=== PATIENT | female | born 1965 | race Caucasian/White ===

== ENCOUNTER 2024-08-11 00:51 | Inpatient (IN) | payer OTHER ==
[2024-08-11 01:33] LABS: Absolute Eosinophils 0.1 K/uL (0-0.5); Absolute Lymphocytes (CBC) 1.3 K/uL (0.7-4.9); Absolute Monocytes 0.4 K/uL (0.1-1.3); Absolute Neutrophil 4.9 K/uL (1.8-8.0); Basophils % 0.4 % (0-1.3); Eosinophils % 1.3 % (0-4.4); Hematocrit 38.7 % (36.0-45.0); Hemoglobin 12.6 g/dL (12.0-15.0); Lymphocytes % 19.2 % (15.3-44.8); MCH 29.4 pg (27.0-35.0); MCHC 32.6 g/dL (32.0-36.0); MCV 90.3 fL (80-100); MPV 7.8 fL (7.6-11.3); Monocytes % 6.7 % (3.3-12.3); Neutrophils % 72.4 % (41.7-73.7); Platelets 371 thou/uL (152-406); RBC Red Blood Cell Count 4.29 M/uL (3.86-4.86)
[2024-08-11 01:34] LABS: PT Prothrombin Time 9.8 SECONDS (9.4-12.5); Protime INR 0.87
[2024-08-11 02:13] LABS: ALT/SGPT 17 U/L (13-56); AST/SGOT 12 U/L (15-37); Albumin 2.9 g/dL (3.4-5.0); Albumin/Globulin Ratio 0.7 (1.1-1.8); Alkaline Phosphatase 161 U/L (45-117); Anion Gap 13.6 mEq/L (5.0-15.0); BUN Blood Urea Nitrogen 10 mg/dL (7-18); Bicarbonate 26 mEq/L (21-32); Bilirubin Direct < 0.2 mg/dL (0-0.2); Bilirubin Total 0.2 mg/dL (0.2-1.0); Globulin 4.1 g/dL (2.3-3.5); Glomerular Filtration Rate 71 ml/min (=/>90); Magnesium 1.9 mg/dL (1.6-2.4); NT PRO-BNP 280 pg/mL (<125); Potassium 4.6 mEq/L (3.5-5.1); Sodium Level 122 mEq/L (136-145); Troponin High Sensitivity 10.5 pg/mL (<58.9)
[2024-08-11 02:14] LABS: Glucose Level 946 mg/dL (74-106)
[2024-08-11] MEDS ORDERED: INSULIN REGULAR (HUMAN) 100 UNIT/ML ONE ×4 (02:29→16:24)
[2024-08-11] MEDS ORDERED: NA CHLORIDE 0.9% 3,000 ML ONE (02:30)
[2024-08-11] MEDS ORDERED: ONDANSETRON 4 MG/2 ML VIAL ONE (02:54)
--- NOTE | 2024-08-11 04:42 | RAD REPORT ---
EXAM: CT Head Without Intravenous Contrast CLINICAL HISTORY: The patient is 58 years old and is Female; Dizziness. TECHNIQUE: Axial computed tomography images of the head/brain without intravenous contrast. Sagit steven and coronal reformatted images were created and reviewed. This CT exam was performed using one or more of the following dose reduction techniques: automated exposure control, adjustment of t he mA and/or kV according to patient size, and/or use of iterative reconstruction technique. COMPARISON: No relevant prior studies available. FINDINGS: Brain: Unremarkable. No hemorrhage. No significant white matter disease. No edema. Ventricles: Unremarkable. No ventriculomegaly. Bones/joints: Unremarkable. No acute skull fracture. Soft tissues: Unremarkable. Sinuses: Unremarkable as visualized. No acute sinusitis. Mastoid air cells: No significant mastoid fluid. IMPRESSION: No acute intracranial findings. No hemorrhage. Electronically signed by: Yamilet Hare MD 08/11/2024 04:32 AM [facility] [place] Due to temporary technical issues with the PACS/[employer] reporting system, reports are being patric d by the in-house radiologist without review as a courtesy to ensure prompt reporting the interpreting radiologist is fully responsible for the content of the report. Transcribed Date/Time: 08/11/2024 4:40 AM
[2024-08-11 05:48] LABS: Specific Gravity > 1.030 (1.005-1.030); Sqamous Epithelial <5 /HPF (None Seen); Urine Bacteria None Seen /HPF (<20); Urine Bilirubin NEGATIVE (Negative); Urine Blood Negative (Negative); Urine Clarity Clear (Clear); Urine Color Colorless (Yellow); Urine Culture Reflex Order NOT NEEDED; Urine Glucose 4+ (Over) (Negative); Urine Ketones NEGATIVE (Negative); Urine Micro Reflex YN NO BILL MICROSCOPIC; Urine Nitrite NEGATIVE (Negative); Urine Protein TRACE (Negative); Urine RBC <5 /HPF (None Seen); Urine Urobilinogen Normal (Normal); Urine WBC <5 /HPF (<5)
--- NOTE | 2024-08-11 05:59 | RAD REPORT ---
EXAM: XR Chest, 1 View CLINICAL HISTORY: Chest pain. TECHNIQUE: Frontal view of the chest. COMPARISON: No relevant prior studies available. FINDINGS: Lungs: Unremarkable. No consolidation. Pleural space: Unremarkable. No pneumothorax. Heart: Unremarkable. No cardiomegaly. Mediastinum: Unremarkable. Normal mediastinal contour. Bones/joints: Unremarkable. No acute fracture. IMPRESSION: No acute disease. Electronically signed by: Carine Barbosa MD 08/11/2024 03:[address] [facility] Due to temporary technical issues with the PACS/[employer] reporting system, reports are being patric d by the in-house radiologist without review as a courtesy to ensure prompt reporting the interpreting radiologist is fully responsible for the content of the report. Transcribed Date/Time: 08/11/2024 5:59 AM
[2024-08-11 07:13] LABS: Anion Gap 9.7 mEq/L (5.0-15.0); Potassium 3.7 mEq/L (3.5-5.1)
--- NOTE | 2024-08-11 08:01 | RAD REPORT ---
EXAM: Chest Abdomen Pelvis W Cont CLINICAL INDICATION: Chest and abdominal pain TECHNIQUE: CT chest, abdomen and pelvis was performed, with 100 cc Isovue-300 IV contrast, as per de partment protocol. Axial, sagittal and coronal reconstructions were obtained. One or more of the following dose reduction techniques were used: Automated exposure control, adjustment of the mA and/o r kV according to the patient size, and/or iterative reconstruction. Unless otherwise specified, incidental findings do not require dedicated imaging follow-up. [id number]. Oral contrast not given. This limits evaluation of the bowel. COMPARISON: None FINDINGS: 4 cm right breast mass. In thickening. Skin ulceration. Lateral mid breast mass. Mild right axillary lymphadenopathy. Mild COPD No pleural effusion.. A trace pericardial effusion. The spinal or hilar lymphadenopathy. Liver, spleen, pancreas, left adrenal and kidneys unremarkable 1.9 cm right adrenal lesion Hounsfield unit 119 There is no evidence of diverticulitis Retroverted uterus. 4.2 cm mass abuts the posterior fundus. Gastric wall thickening IMPRESSION: Right breast mass may represent neoplasm or abscess. Gastric wall thickening could be secondary to inflammation or incomplete distention. 1.9 cm right adrenal lesion probably an adenoma. Follow-up washout CT recommended in one year. If sta ble greater than one-year no further follow-up would be recommended. 4.2 cm mass abutting the uterus could represent a subserosal fibroid or ovarian mass. Ultrasound caron mmended
--- NOTE | 2024-08-11 08:31 | ER ---
Nurse's Notes [facility] Name: Karlene Cr Age: 58 yrs Sex: Female : 1965 Arrival Date: 08/11/2024 Time: 00:51 Bed 7 Private MD: Diagnosis: Hyperglycemia, dehydration, breast mass Presentation: 08/11 01:06 Chief complaint: Patient states: 2300 i couldn't move my right arm for about 1 minute. lg3 Cp X3 days. wound to right breast. Coronavirus screen: Client denies travel out of the [place] in the last 14 days. At this time, the client does not indicate any symptoms associated with coronavirus-19. Ebola Screen: No symptoms or risks identified at this time. Initial Sepsis Screen: Does the patient meet any 2 criteria? No. Patient's initial sepsis screen is negative. Does the patient have a suspected source of infection? No. Patient's initial sepsis screen is negative. Risk Assessment: Do you want to hurt yourself or someone else? Patient reports no desire to harm self or others. Onset of symptoms was August 11, 2024. 01:06 Method Of Arrival: Wheelchair lg3 01:06 Acuity: [place] 3 lg3 Triage Assessment: 01:09 General: Appears in no apparent distress. comfortable, Behavior is calm, cooperative. lg3 Pain: Complains of pain in chest Pain does not radiate. Pain currently is 3 out of 10 on a pain scale. EENT: No deficits noted. No signs and/or symptoms were reported regarding the EENT system. Neuro: No deficits noted. Cornell Agitation-Sedation Scale (RASS): 0 - Alert and Calm Level of Consciousness is awake, alert, obeys commands, Oriented to person, place, time, situation. Cardiovascular: Reports chest pain, Capillary refill < 3 seconds Clubbing of nail beds is absent JVD is absent Patient's skin is warm and dry. Rhythm is regular. Respiratory: No deficits noted. Airway is patent Respiratory effort is even, unlabored, Respiratory pattern is regular, symmetrical. GI: No signs and/or symptoms were reported involving the gastrointestinal system. Abdomen is round non-distended. : No signs and/or symptoms were reported regarding the genitourinary system. Derm: Skin is intact, is healthy with good turgor, Skin is dry, Skin is normal, Skin temperature is warm Wound noted anterior aspect of right upper chest and right breast. Musculoskeletal: No signs and/or symptoms reported regarding the musculoskeletal system. Circulation, motion, and sensation intact. Range of motion: intact in all extremities. Historical: - Allergies: 01:09 PENICILLINS; lg3 - Home Meds: :09 gabapentin oral [Active]; unknown muscle relaxer [Active]; unknown insulin [Active]; lg3 - PMHx: :09 Diabetes mellitus; bipolar; neuropathy; lg3 - PSHx: 01: Cholecystectomy; lg3 - Immunization history:: Adult Immunizations up to date. - Infectious Disease History:: Denies. - Social history:: Smoking status: Patient reports the use of cigarette tobacco products, Patient denies any tobacco usage or history of. Patient/guardian denies using alcohol, street drugs. - Family history:: not pertinent. Screenin:13 [facility] ED Fall Risk Assessment (Adult) History of falling in the last 3 months, lg3 including since admission No falls in past 3 months (0 pts) Confusion or Disorientation No (0 pts) Intoxicated or Sedated No (0 pts) Impaired Gait Yes (1 pt) Mobility Assist Device Used Yes (1 pt) Altered Elimination Yes (1 pt) Score/Fall Risk Level 3 or more points = High Risk Oriented to surroundings, Maintained a safe environment, Educated pt \T\ family on fall prevention, incl call for assistance when getting out of bed, Assessed \T\ reinforced patient's understanding of fall precautions, Provided non-skid footwear. Abuse screen: Denies threats or abuse. Denies injuries from another. Nutritional screening: No deficits noted. Tuberculosis screening: No symptoms or risk factors identified. Assessment: :13 General: see triage assessment. Pain: Pain began 2-3 days ago. lg3 02:23 Reassessment: Patient appears in no apparent distress at this time. Patient and/or bm8 family updated on plan of care and expected duration. Pain level reassessed. Patient is alert, oriented x 3, equal unlabored respirations, skin warm/dry/pink. Reassessment: pt states that she should not have drank that code red [place] dew. General: Appears in no apparent distress. comfortable, Behavior is calm, cooperative, appropriate for age. Pain: Complains of pain in anterior aspect of left shoulder Pain currently is 7 out of 10 on a pain scale. Neuro: No deficits noted. Level of Consciousness is awake, alert, obeys commands, Oriented to person, place, time, situation, Appropriate for age. Neuro: Cardiovascular: Denies chest pain, Heart tones S1 S2 present Capillary refill < 3 seconds Patient's skin is warm and dry. Respiratory: Airway is patent Trachea midline Respiratory effort is even, unlabored, Respiratory pattern is regular, symmetrical, Breath sounds are clear bilaterally. GI: No signs and/or symptoms were reported involving the gastrointestinal system. : No signs and/or symptoms were reported regarding the genitourinary system. EENT: No signs and/or symptoms were reported regarding the EENT system. Derm: No signs and/or symptoms reported regarding the dermatologic system. Musculoskeletal: No signs and/or symptoms reported regarding the musculoskeletal system. 04:57 Reassessment: Patient appears in no apparent distress at this time. Patient and/or bm8 family updated on plan of care and expected duration. Pain level reassessed. Patient is alert, oriented x 3, equal unlabored respirations, skin warm/dry/pink. Patient states feeling better. Patient states symptoms have improved. Pain: Pain currently is 4 out of 10 on a pain scale. 06:46 Reassessment: Patient appears in no apparent distress at this time. Patient and/or bm8 family updated on plan of care and expected duration. Pain level reassessed. Patient is alert, oriented x 3, equal unlabored respirations, skin warm/dry/pink. pt is resting in bed watching tv, denies pain. awaiting new cmp results for furthre treatment if needed Patient denies pain at this time. Patient states feeling better. Patient states symptoms have improved. 10:59 Pain: Pain does not radiate. Quality of pain is described as aching. ko1 Vital Signs: 01:06 BP 105 / 80; Pulse 84; Resp 17 S; Temp 97.8(O); Pulse Ox 97% on R/A; Weight 58.97 kg lg3 (R); Height 5 ft. 7 in. (R); 02:23 BP 150 / 91; Pulse 86; Resp 18; Temp 97.7; Pulse Ox 97% ; Pain 7/10; bm8 04:57 BP 173 / 100; Pulse 88; Resp 18; Temp 97.7; Pulse Ox 100% ; Pain 4/10; bm8 06:46 BP 162 / 78; Pulse 87; Resp 18; Temp 97.7; Pulse Ox 99% ; Pain 0/10; bm8 01:06 Body Mass Index 20.36 (58.97 kg, 170.18 cm) lg3 02:23 Pain Scale: Adult bm8 04:57 Pain Scale: Adult bm8 06:46 Pain Scale: Adult bm8 Lupe Coma Score: 02:23 Eye Response: spontaneous(4). Motor Response: obeys commands(6). Verbal Response: bm8 oriented(5). Total: 15. 04:57 Eye Response: spontaneous(4). Motor Response: obeys commands(6). Verbal Response: bm8 oriented(5). Total: 15. 06:46 Eye Response: spontaneous(4). Motor Response: obeys commands(6). Verbal Response: bm8 oriented(5). Total: 15. 07:52 Eye Response: spontaneous(4). Motor Response: obeys commands(6). Verbal Response: sp4 oriented(5). Total: 15. ED Course: 00:52 Patient arrived in ED. mr 00:57 Alberto Stauffer MD is Attending Physician. sp4 01:09 Triage completed. lg3 01:09 Arm band placed on right wrist. lg3 01:12 EKG done, by ED staff, reviewed by Alberto Stauffer MD. Patient maintains SpO2 lg3 saturation greater than 95% on room air. 01:13 Patient has correct armband on for positive identification. Family accompanied patient. lg3 01:13 Inserted saline lock: 20 gauge in right forearm, using aseptic technique. Blood lg3 collected. Flushed with 10 mL NS. 01:14 Initial lab(s) drawn, by ED staff, sent to lab. lg3 01:14 Basic Metabolic Panel Sent. lg3 01:14 CBC with Diff Sent. lg3 01:14 LFT's Sent. lg3 01:15 Magnesium Sent. lg3 01:15 NT PRO-BNP Sent. lg3 01:15 PT-INR Sent. lg3 01:15 Troponin HS Sent. lg3 01:39 XRAY Chest (1 view) In Process Unspecified. EDMS 02:23 Lee Dubose, RN is Primary Nurse. bm8 02:23 Client placed on continuous cardiac and pulse oximetry monitoring. NIBP monitoring bm8 applied. Pulse ox on. NIBP on. Notified ED physician of a critical lab result(s). Glucose level 964. Door closed. Noise minimized. Warm blanket given. Pillow given. Verbal reassurance given. Head of bed elevated. 02:23 No provider procedures requiring assistance completed. bm8 03:05 CT Head Brain wo Cont In Process Unspecified. EDMS 07:33 Attending Physician role handed off by Alberto Stauffer MD ap3 07:33 Dorian Raphael MD is Attending Physician. ap3 07:36 CT Chest, Abdomen, Pelvis - W/Contrast In Process Unspecified. EDMS 07:52 Attending Physician role handed off by Dorian Raphael MD sp4 07:52 Alberto Stauffer MD is Attending Physician. sp4 08:10 Attending Physician role handed off by Alberto Stauffer MD sp3 08:10 Dorian Raphael MD is Attending Physician. sp3 08:30 Abram Nguyen is Hospitalizing Provider. sp3 10:59 Provided Education on: meds. ko1 10:59 Patient admitted, IV remains in place. ko1 Administered Medications: 02:46 Drug: NS 0.9% IV 1000 ml IV at 1000 ml once; to be given as a bolus over 60 minutes bm8 Route: IV; Rate: 1000 ml; Site: right forearm; 04:56 Follow up: Response: No adverse reaction; IV Status: Completed infusion; IV Intake: bm8 1000ml 02:47 Drug: Insulin Regular Human IVP 10 units IVP once {Co-Signature: jackie (Janett Sweeney bm8 RN).} Route: IVP; Site: right forearm; 04:56 Follow up: Response: No adverse reaction bm8 02:47 Drug: NS 0.9% IV 1000 ml IV at 1 bolus Per protocol; to be given as a bolus over 60 bm8 minutes Route: IV; Rate: 1 bolus; Site: right forearm; 04:56 Follow up: Response: No adverse reaction; IV Status: Completed infusion; IV Intake: bm8 1000ml 02:53 Drug: Ondansetron IVP 4 mg IVP once; over 2 minutes Route: IVP; Site: right forearm; bm8 04:55 Follow up: Response: No adverse reaction bm8 04:55 Drug: NS 0.9% IV 1000 ml IV at 125 ml/hr continuous Route: IV; Rate: 125 ml/hr; Site: bm8 right forearm; 11:55 Follow up: IV Status: Infusion continued upon admission ko1 Medication: 02:23 VIS not applicable for this client. bm8 Intake: 04:56 IV: 1000ml; Total: 1000ml. bm8 04:56 IV: 1000ml; Total: 2000ml. bm8 Outcome: 08:31 Decision to Hospitalize by Provider. sp3 10:59 Admitted to ER Hold. Please see [facility] for further documentation. ko1 10:59 Condition: stable 10:59 Instructed on the need for admit, 16:46 Admitted to Med/surg accompanied by tech, room 225, with chart, ko1 16:46 Patient left the ED. ko1 Signatures: Dispatcher [employer] EDPA Tana Thomas, Reg Reg mr Francisca Oseguera, RN RN ap3 Peggy Sanchez RN RN lg3 Dorian Raphael MD MD sp3 Brii Macdonald RN RN ko1 Alberto Stauffer MD MD sp4 Lee Dubose RN RN bm8 Janett Sweeney RN
--- NOTE | 2024-08-11 08:31 | EDPHYS ---
Physician Documentation [facility] Name: Karlene Cr Age: 58 yrs Sex: Female : 1965 Arrival Date: 08/11/2024 Time: 00:51 Bed 7 Private MD: ED Physician Dorian Raphael HPI: 08/11 00:57 This 58 yrs old Female presents to ER via Unassigned with complaints of Chest sp4 Pain, Dizziness, Arm Problem. 07:52 58-year-old female with history of uncontrolled diabetes presents with generalized sp4 dizziness chest pain and right arm pain . Historical: - Allergies: 01:09 PENICILLINS; lg3 - Home Meds: 01:09 gabapentin oral [Active]; unknown muscle relaxer [Active]; unknown insulin [Active]; lg3 - PMHx: 01:09 Diabetes mellitus; bipolar; neuropathy; lg3 - PSHx: 01:09 Cholecystectomy; lg3 - Immunization history:: Adult Immunizations up to date. - Infectious Disease History:: Denies. - Social history:: Smoking status: Patient reports the use of cigarette tobacco products, Patient denies any tobacco usage or history of. Patient/guardian denies using alcohol, street drugs. - Family history:: not pertinent. ROS: 07:52 Constitutional: Negative for fever, chills, and weight loss, positive chest pain, sp4 positive dizziness, positive right arm pain. Positive uncontrolled diabetes 07:52 All other systems are negative, Exam: 07:52 Constitutional: This is a well developed, but ill-appearing and physically debilitated sp4 female with dry mucous membranes. There is moderate size irregular in appearance necrotic right breast mass on exam Head/Face: Normocephalic, atraumatic. Eyes: Pupils equal round and reactive to light, extra-ocular motions intact. Lids and lashes normal. Conjunctiva and sclera are not injected. Cornea within normal limits. Periorbital areas with no swelling, redness, or edema. ENT: Nares patent. No nasal discharge, no septal abnormalities noted. Tympanic membranes are normal and external auditory canals are clear. Oropharynx with no redness, swelling, or masses, exudates, or evidence of obstruction, uvula midline. Mucous membranes moist. Neck: Trachea midline, no thyromegaly or masses palpated, and no cervical lymphadenopathy. Supple, full range of motion without nuchal rigidity, or vertebral point tenderness. Chest/axilla: Normal chest wall appearance and motion. Nontender with no deformity. No lesions are appreciated. Cardiovascular: Regular rate and rhythm with a normal S1 and S2. No gallops, murmurs, or rubs. Normal PMI, no JVD. No pulse deficits. Respiratory: Lungs have equal breath sounds bilaterally, clear to auscultation and percussion. No rales, rhonchi or wheezes noted. No increased work of breathing, no retractions or nasal flaring. Abdomen/GI: Soft, with normal bowel sounds. No distension or tympany. No guarding or rebound. No evidence of tenderness throughout. Back: No spinal tenderness. No costovertebral tenderness. Skin: Warm, dry with poor skin turgor and generalized pallor. MS/ Extremity: Pulses equal, no cyanosis. Neurovascular intact. Full, normal range of motion. Neuro: Awake and alert, GCS 15, oriented to person, place, time, and situation. Cranial nerves II-XII grossly intact. Motor strength 5/5 in all extremities. Sensory grossly intact. Psych: Awake, alert, with orientation to person, place and time. Behavior, mood, and affect are within normal limits 07:52 ECG was reviewed by the Attending Physician. EKG at 0 111 normal sinus rhythm left axis deviation Vital Signs: 01:06 BP 105 / 80; Pulse 84; Resp 17 S; Temp 97.8(O); Pulse Ox 97% on R/A; Weight 58.97 kg lg3 (R); Height 5 ft. 7 in. (R); 02:23 BP 150 / 91; Pulse 86; Resp 18; Temp 97.7; Pulse Ox 97% ; Pain 7/10; bm8 04:57 BP 173 / 100; Pulse 88; Resp 18; Temp 97.7; Pulse Ox 100% ; Pain 4/10; bm8 06:46 BP 162 / 78; Pulse 87; Resp 18; Temp 97.7; Pulse Ox 99% ; Pain 0/10; bm8 01:06 Body Mass Index 20.36 (58.97 kg, 170.18 cm) lg3 02:23 Pain Scale: Adult bm8 04:57 Pain Scale: Adult bm8 06:46 Pain Scale: Adult bm8 [place] Coma Score: 02:23 Eye Response: spontaneous(4). Motor Response: obeys commands(6). Verbal Response: bm8 oriented(5). Total: 15. 04:57 Eye Response: spontaneous(4). Motor Response: obeys commands(6). Verbal Response: bm8 oriented(5). Total: 15. 06:46 Eye Response: spontaneous(4). Motor Response: obeys commands(6). Verbal Response: bm8 oriented(5). Total: 15. 07:52 Eye Response: spontaneous(4). Motor Response: obeys commands(6). Verbal Response: sp4 oriented(5). Total: 15. MDM: 00:58 Medical Screening Exam initiated sp4 03:20 ED course: EXAM: XR Chest, 1 View CLINICAL HISTORY: Chest pain. TECHNIQUE: Frontal view sp4 of the chest. COMPARISON: No relevant prior studies available. FINDINGS: Lungs: Unremarkable. No consolidation. Pleural space: Unremarkable. No pneumothorax. Heart: Unremarkable. No cardiomegaly. Mediastinum: Unremarkable. Normal mediastinal contour. Bones/joints: Unremarkable. No acute fracture. IMPRESSION: No acute disease. . 07:58 Differential diagnosis: acute pericarditis, anxiety, chest wall pain, esophagitis, sp4 gastritis. HEART Score: History: Slightly Suspicious (0), ECG: Non specific repolarization disturbance / LBTB / PM (1), Age: > 45 and < 65 years (1), Risk Factors: 1 or 2 risk factors (1), Troponin: < or = 1 x Normal Limit (0), Total Score = 3. Data reviewed: vital signs, nurses notes, lab test result(s), EKG, radiologic studies, CT scan. Transition of care: After a detail discussion of the patient's case, care is transferred to Dorian Raphael MD. 08:15 ED course: Patient taken over by me from night patrol inspector physician. CT scan demonstrates sp3 breast mass and other nonspecific findings. Patient still dehydrated and hyperglycemic. Will place in observation under medicine service for further intervention and hematology oncology consultation.. 08/11 00:58 Order name: Basic Metabolic Panel; Complete Time: 02:15 sp4 08/11 00:58 Order name: CBC with Diff; Complete Time: 02:15 sp4 08/11 00:58 Order name: LFT's; Complete Time: 02:15 sp4 08/11 00:58 Order name: Magnesium; Complete Time: 02:15 sp4 08/11 00:58 Order name: NT PRO-BNP; Complete Time: 02:15 sp4 08/11 00:58 Order name: PT-INR; Complete Time: 02:15 4 08/11 00:58 Order name: Troponin HS; Complete Time: 02:15 sp4 08/11 02:37 Order name: Urinalysis W/Microscopic; Complete Time: 06:51 sp4 08/11 05:31 Order name: BMP; Complete Time: 07:39 sp4 08/11 10:01 Order name: T4 Free EDMS 08/11 10:01 Order name: Thyroid Stimulating Hormone EDMS 08/11 10:01 Order name: Urinalysis w/ reflexes EDMS 08/11 10:01 Order name: Basic Metabolic Panel EDMS 14 10:01 Order name: Basic Metabolic Panel EDMS 14 10:01 Order name: Basic Metabolic Panel EDMS 14 10:01 Order name: Basic Metabolic Panel EDMS 14 10:01 Order name: Basic Metabolic Panel EDMS 14 10:01 Order name: Basic Metabolic Panel EDMS 14 10:01 Order name: CBC with Automated Diff EDMS /14 10:01 Order name: CBC with Automated Diff EDMS /14 10:01 Order name: CBC with Automated Diff EDMS /14 10:01 Order name: CBC with Automated Diff EDMS /14 10:01 Order name: CBC with Automated Diff EDMS /14 10:01 Order name: CBC with Automated Diff EDMS /14 10:01 Order name: Lipid Profile EDMS 14 10:01 Order name: Lipid Profile EDMS /14 10:01 Order name: Magnesium EDMS /14 10:01 Order name: Magnesium EDMS /14 10:01 Order name: Magnesium EDMS 11/14 10:01 Order name: Magnesium EDMS 11/14 10:01 Order name: Magnesium EDMS 11/14 10:01 Order name: Magnesium EDMS /14 10:01 Order name: Phosphorus EDMS 11/14 10:01 Order name: Phosphorus EDMS 11/14 10:01 Order name: Phosphorus EDMS 11/14 10:01 Order name: Phosphorus EDMS 11/14 10:01 Order name: Phosphorus EDMS 11/14 10:01 Order name: Phosphorus EDDC 08/11 10:02 Order name: Glucose, Ancillary Testing; Complete Time: 12:39 EDMS 08/11 11:53 Order name: Glucose, Ancillary Testing; Complete Time: 12:39 EDMS 08/11 12:16 Order name: Basic Metabolic Panel; Complete Time: 12:39 EDMS 08/11 12:16 Order name: Lipid Profile; Complete Time: 12:39 EDMS 08/11 12:16 Order name: T4 Free; Complete Time: 12:39 EDMS 08/11 12:16 Order name: Thyroid Stimulating Hormone; Complete Time: 12:39 EDMS 08/11 12:26 Order name: LDL, Direct; Complete Time: 12:39 EDMS 08/11 15:59 Order name: Glucose, Ancillary Testing EDDC 08/11 00:58 Order name: XRAY Chest (1 view); Complete Time: 06:51 sp4 08/11 02:37 Order name: CT Head Brain wo Cont; Complete Time: 07:39 sp4 08/11 07:05 Order name: CT Chest, Abdomen, Pelvis - W/Contrast; Complete Time: 08:10 sp4 08/11 12:31 Order name: US; Complete Time: 12:50 EDMS 08/11 12:39 Order name: US; Complete Time: 12:39 EDDC 08/11 12:59 Order name: US EDDC 08/11 00:58 Order name: EKG; Complete Time: 00:59 sp4 08/11 09:57 Order name: CONS Physician Consult EDDC 08/11 00:58 Order name: Cardiac monitoring; Complete Time: 02:27 sp4 08/11 00:58 Order name: EKG - Nurse/Tech; Complete Time: 01:14 sp4 08/11 00:58 Order name: IV Saline Lock; Complete Time: :14 sp4 08/11 00:58 Order name: Labs collected and sent; Complete Time: : sp4 08/11 00:58 Order name: O2 Per Protocol; Complete Time: :14 sp4 08/11 00:58 Order name: O2 Sat Monitoring; Complete Time: : sp4 EC:52 Rate is 83 beats/min. Rhythm is regular, Normal Sinus Rhythm. Left axis deviation sp4 noted. MD interval is normal. QRS interval is normal. QT interval is normal. No Q waves. T waves are Normal. No ST changes noted. Clinical impression: No evidence of ischemia. Interpreted by me. Reviewed by me. Administered Medications: 02:46 Drug: NS 0.9% IV 1000 ml IV at 1000 ml once; to be given as a bolus over 60 minutes bm8 Route: IV; Rate: 1000 ml; Site: right forearm; 04:56 Follow up: Response: No adverse reaction; IV Status: Completed infusion; IV Intake: bm8 1000ml 02:47 Drug: Insulin Regular Human IVP 10 units IVP once {Co-Signature: jackie (Janett Sweeney bm8 RN).} Route: IVP; Site: right forearm; 04:56 Follow up: Response: No adverse reaction bm8 02:47 Drug: NS 0.9% IV 1000 ml IV at 1 bolus Per protocol; to be given as a bolus over 60 bm8 minutes Route: IV; Rate: 1 bolus; Site: right forearm; 04:56 Follow up: Response: No adverse reaction; IV Status: Completed infusion; IV Intake: bm8 1000ml 02:53 Drug: Ondansetron IVP 4 mg IVP once; over 2 minutes Route: IVP; Site: right forearm; bm8 04:55 Follow up: Response: No adverse reaction bm8 04:55 Drug: NS 0.9% IV 1000 ml IV at 125 ml/hr continuous Route: IV; Rate: 125 ml/hr; Site: bm8 right forearm; 11:55 Follow up: IV Status: Infusion continued upon admission ko1 Disposition Summary: 08/11/24 08:31 Hospitalization Ordered Notes: Hospitalization Status: Observation sp3 Provider: Abram Nguyen sp3 Condition: Stable sp3 Problem: an acute exacerbation sp3 Symptoms: have worsened sp3 Bed/Room Type: Standard sp3 Location: Telemetry/MedSurg (observation)(08/11/24 15:29) em1 Room Assignment: [facility](08/11/24 15:29) em1 Diagnosis - Hyperglycemia, dehydration, breast mass sp3 Forms: - Medication Reconciliation Form sp3 - SBAR form sp3 - Leadership Thank You Letter sp3 Signatures: Dispatcher [employer] Nain Delgadillo em1 Peggy Sanchez RN RN lg3 Dorian Raphael MD MD sp3 Alberto Stauffer MD MD sp4 Lee Dubose, RN RN bm8 Brii Macdonald RN ko1 Janett Sweeney RN ay Corrections: (The following items were deleted from the chart) 08: Telemetry/MedSurg (observation) sp3 em1 sp3 em1 15: [facility] ER HOLD em1 em1 ERHOLD- em1 em1
[2024-08-11] MEDS: INSULIN REGULAR (HUMAN) 100 UNIT/ML SQ ONE (09:58)
[2024-08-11] MEDS: NA CHLORIDE 0.9% 1,000 ML IV SCH ×2 (10:00→19:04)
[2024-08-11] MEDS ORDERED: NA CHLORIDE 0.9% 1,000 ML ONE (10:13)
[2024-08-11] MEDS: DOXYCYCLINE 100 MG in NA CHLORIDE 0.9% 100 ML IVPB SCH (10:19)
--- NOTE | 2024-08-11 10:30 | P.HP ---
Certification for Inpatient Patient admitted to: Inpatient With expected LOS: >2 Midnights Practitioner: I am a practitioner with admitting privileges, knowledge of patient current condition, hospital course, and medical plan of care. Services: Services provided to patient in accordance with Admission requirements found in Title 42 Section 412.3 of the Code of Federal Regulations Patient History Date of Service: 08/11/24 Reason for admission: HHNS History of Present Illness: Karlene Cr is 58-year-old female with past medical history diabetes mellitus, bipolar, neuropathy, hypotension who presents to the ED with right arm pain and general dizziness with chest pain. Evaluation in the ED she was found to be hyperglycemic with serum glucose greater than 900. On examination, right arm with full ROM, Right breast with mass and skin ulceration, conversing well, no acute distress, hypotensive, lungs sound clear. Laboratory evaluation significant for serum glucose 946, sodium 122, BNP 280, UA negative for infectious process. Initial vitals BP 105 / 80; Pulse 84; Resp 17 S; Temp 97.8(O); Pulse Ox 97% on R/A CT CAP reports IMPRESSION: Right breast mass may represent neoplasm or abscess. Gastric wall thickening could be secondary to inflammation or incomplete distention.1.9 cm right adrenal lesion probably an adenoma. Follow-up washout CT recommended in one year. If stable greater than one-year no further follow-up would be recommended. 4.2 cm mass abutting the uterus could represent a subserosal fibroid or ovarian mass. Ultrasound recommended." Karlene will be admitted to hospital service for further evaluation and treatment of HHNS and right breast mass, Dr. Paz consulted. Allergies Penicillins Allergy (Verified 08/11/24 10:15) UNK Home Medications: Gabapentin [Neurontin] 800 mg PO TID 08/11/24 - Past Medical/Surgical History -: Hypotension -: Diabetes mellitus -: Bipolar -: Peripheral neuropathy -: Cholecystectomy - Family History Family History: Reviewed- Non-Contributory - Social History Smoking Status: Never smoker Alcohol use: No CD- Drugs: No Review of Systems Musculoskeletal: Arm Pain (right ) Physical Examination - Physical Exam General: Alert, In no apparent distress, Oriented x3 HEENT: Atraumatic, Normocephalic, PERRLA Neck: Supple, 2+ carotid pulse no bruit Respiratory: Clear to auscultation bilaterally, Normal air movement Cardiovascular: No edema, Normal pulses, Regular rate/rhythm, Normal S1 S2 Capillary refill: <2 Seconds Gastrointestinal: Normal bowel sounds, Soft and benign Musculoskeletal: No clubbing Integumentary: Other (Right breast mass with skin ulceration) Neurological: Normal speech, Normal tone - Studies Laboratory Data (last 24 hrs) 08/11/24 08/11/24 08/11/24 06:44 01:19 01:19 WBC 6.70 Hgb 12.6 Hct 38.7 Plt Count 371 PT 9.8 INR 0.87 Sodium 135 L D Potassium 3.7 D BUN 8 Creatinine 0.61 Glucose 413 H* Magnesium Total Bilirubin AST ALT Alkaline Phosphatase 08/11/24 01:19 WBC Hgb Hct Plt Count PT INR Sodium 122 L Potassium 4.6 BUN 10 Creatinine 0.93 Glucose 946 H* Magnesium 1.9 Total Bilirubin 0.2 AST 12 L ALT 17 Alkaline Phosphatase 161 H Assessment and Plan - Plan Assessment and Plan Right breast mass abscess vs neoplasm Right lymghadenopathy -Bilateral mammogram -biopsy -US right axillary lymphadenopathy -doxycycline and cefepime -IVF -student support services director help with ILYA set up [facility] Hyponatremia -Serum glucose 946/413/402 -Na 122/135 -Accucheck with SSI -IVF -BMP Q4h Hypertriglyceridemia Hyperlipidemia -No home medications at this time -Fenofibrate and atorvastatin started Hypotension Mitral valve prolapse Bipolar Peripheral neuropathy -continue home medications DVT ppx SCD Full Code LOS 2 -3 days Discharge Plan: Home Plan to discharge in: 48 Hours - Advance Directives Does patient have a Living Will: No Does patient have a Durable POA for Healthcare: No
[2024-08-11] MEDS ORDERED: NA CHLORIDE 0.9% 100 ML ONE ×2 (11:12→15:36)
[2024-08-11] MEDS ORDERED: DOXYCYCLINE HYCLATE 100MG INJ ONE (11:12)
[2024-08-11] MEDS: INSULIN REGULAR (HUMAN) 100 UNIT/ML SQ SCH (11:30)
[2024-08-11 11:36] VITALS: BMI 20.7
[2024-08-11 12:15] LABS: Anion Gap 7.2 mEq/L (5.0-15.0); BUN Blood Urea Nitrogen 7 mg/dL (7-18); Bicarbonate 31 mEq/L (21-32); Glomerular Filtration Rate 106 ml/min (=/>90); Glucose Level 345 mg/dL (74-106); HDL Cholesterol 51 mg/dL (40-60); Potassium 4.2 mEq/L (3.5-5.1); Sodium Level 137 mEq/L (136-145)
[2024-08-11 12:26] LABS: LDL, Direct 167 mg/dL (100-129)
--- NOTE | 2024-08-11 12:31 | RAD REPORT ---
EXAMINATION: BREAST/AXILLA, COMPLETE CLINICAL INDICATION: Right breast mass TECHNIQUE: Real-time sonography in multiple planes of the breast, including all four quadrants and th e retroareolar region, was performed with image documentation. . COMPARISON: CT August 11, 2024 FINDINGS: 4 cm hypoechoic lobulated mass upper right breast with increase in vascularity.. Smaller adjacent hyp oechoic mass. IMPRESSION: 4 cm solid mass right breast BI-RAD V -Highly Suggestive for Malignancy
--- NOTE | 2024-08-11 12:38 | RAD REPORT ---
EXAMINATION: BREAST/AXILLA, COMPLETE CLINICAL INDICATION: Breast pain TECHNIQUE: Real-time sonography in multiple planes of the left breast, including all four quadrants a nd the retroareolar region, was performed with image documentation. . COMPARISON: None FINDINGS: Vague ill-defined hypoechoic area upper outer quadrant left breast No additional cystic or solid mass seen. IMPRESSION: Vague ill-defined hypoechoic area upper outer quadrant left breast. This probably represents fibrogla ndular tissue. A true abnormality is considered less likely. However, further evaluation with either mammogram or MRI would be recommended BI-RAD 0 - Incomplete: Needs Additional Imaging Evaluation
--- NOTE | 2024-08-11 12:59 | RAD REPORT ---
EXAMINATION: ULTRASOUND RIGHT AXILLARY REGION CLINICAL INDICATION: TECHNIQUE: Real-time sonography in multiple planes of the RIGHT axilla. COMPARISON: CT August 11, 2024. FINDINGS: 1 cm irregularly-shaped hypoechoic mass right axilla with increased vascularity. It is spiculated. IMPRESSION: 1 cm spiculated mass right axilla probably a metastatic lymph node
[2024-08-11] MEDS: CEFEPIME 2 GM in NA CHLORIDE 0.9% 100 ML IV SCH (14:00)
[2024-08-11] MEDS ORDERED: CEFEPIME 2 GM VIAL ONE (15:36)
[2024-08-11] MEDS: HYDRALAZINE HCL 20 MG/ML VIAL IV PRN (17:23)
[2024-08-11 18:49] LABS: Anion Gap 8.9 mEq/L (5.0-15.0); Potassium 3.9 mEq/L (3.5-5.1)
[2024-08-11] MEDS: FENOFIBRATE 48 MG TAB PO SCH (20:15)
[2024-08-11] MEDS: ATORVASTATIN 20 MG TAB PO SCH (20:15)
[2024-08-11] MEDS: GABAPENTIN 400 MG CAP PO SCH (20:16)
[2024-08-11 20:57] LABS: Anion Gap 8.3 mEq/L (5.0-15.0); Potassium 4.3 mEq/L (3.5-5.1)
[2024-08-11] MEDS: ACETAMINOPHEN 325 MG TABLET PO PRN (23:38)
[2024-08-12 00:05] LABS: Anion Gap 8.1 mEq/L (5.0-15.0); Potassium 4.1 mEq/L (3.5-5.1)
[2024-08-12 04:46] LABS: Absolute Eosinophils 0.2 K/uL (0-0.5); Absolute Lymphocytes (CBC) 2.3 K/uL (0.7-4.9); Absolute Monocytes 0.5 K/uL (0.1-1.3); Absolute Neutrophil 5.2 K/uL (1.8-8.0); Basophils % 0.5 % (0-1.3); Eosinophils % 2.7 % (0-4.4); Hematocrit 34.7 % (36.0-45.0); Hemoglobin 11.7 g/dL (12.0-15.0); MCH 29.6 pg (27.0-35.0); MCHC 33.7 g/dL (32.0-36.0); MPV 7.9 fL (7.6-11.3); Monocytes % 5.7 % (3.3-12.3); Neutrophils % 63.1 % (41.7-73.7); Nucleated Red Blood Cells % 0.1 % (0-0); Platelets 342 thou/uL (152-406); RBC Red Blood Cell Count 3.94 M/uL (3.86-4.86); Red Cell Distribution Width 13.4 % (12.1-15.2)
[2024-08-12 04:57] LABS: Anion Gap 9.1 mEq/L (5.0-15.0); Magnesium 1.8 mg/dL (1.6-2.4); Potassium 4.1 mEq/L (3.5-5.1)
[2024-08-12] MEDS: MAGNESIUM SULFATE 1 gm IVPB 1 GM/100 ML BAG IV ONE (06:26)
[2024-08-12] MEDS ORDERED: NITROGLYCERIN 0.4 MG/TAB SL PRN (15:21)
[2024-08-12 16:15] LABS: Absolute Eosinophils 0.1 K/uL (0-0.5); Absolute Lymphocytes (CBC) 1.4 K/uL (0.7-4.9); Absolute Monocytes 0.3 K/uL (0.1-1.3); Absolute Neutrophil 4.5 K/uL (1.8-8.0); Basophils % 0.3 % (0-1.3); Eosinophils % 1.6 % (0-4.4); Hematocrit 30.4 % (36.0-45.0); Lymphocytes % 22.1 % (15.3-44.8); MCH 29.5 pg (27.0-35.0); MCV 89.6 fL (80-100); Monocytes % 5.4 % (3.3-12.3); Neutrophils % 70.6 % (41.7-73.7); Platelets 302 thou/uL (152-406); RBC Red Blood Cell Count 3.39 M/uL (3.86-4.86); Red Cell Distribution Width 13.2 % (12.1-15.2)
[2024-08-12 16:23] LABS: PT Prothrombin Time 11.5 SECONDS (9.4-12.5); PTT, Activated Partial Thromb 29.4 SECONDS (24.3-36.9); Protime INR 1.03
[2024-08-12] MEDS: ASPIRIN 325 MG TAB PO ONE (16:44)
[2024-08-12] MEDS: HEPARIN/D5W 25,000 UNIT/500 ML BAG IV SCH (16:45)
--- NOTE | 2024-08-12 16:56 | RAD REPORT ---
EXAMINATION: US PELVIS TRANSABDOMINAL WITH DOPPLER CLINICAL INDICATION: 4.2 cm mass abutting uterus TECHNIQUE: Real-time ultrasonography of the pelvis was performed transabdominally. Color and spectral Doppler evaluation of the ovaries was performed. COMPARISON: 08/11/2024 FINDINGS: Exam was extremely limited by bowel gas. Uterus appears enlarged measuring at least 12 cm. Uterine ma sses/fibroids likely present. IMPRESSION: Extremely limited study due to bowel gas as described. MRI female pelvis could be performed if more d etailed assessment is clinically needed.
--- NOTE | 2024-08-12 18:52 | P.PN ---
Subjective Date of Service: 08/12/24 Chief Complaint: [facility] Patient reports pain in the chest. Not sure how much is related to the breast lesion. Initial troponin negative. Patient has been afebrile. She denies shortness of breath. Physical Examination - Vital Signs Temperature: 98.3 F Blood Pressure: 141/84 Pulse: 89 Respirations: 16 Pulse Ox (%): 99 Assessment And Plan - Plan Physical Exam General: Alert, In no apparent distress, Oriented x3 HEENT: Atraumatic, Normocephalic, PERRLA Neck: Supple, 2+ carotid pulse no bruit Respiratory: Clear to auscultation bilaterally, Normal air movement Cardiovascular: No edema, Normal pulses, Regular rate/rhythm, Normal S1 S2 Capillary refill: <2 Seconds Gastrointestinal: Normal bowel sounds, Soft and benign Musculoskeletal: No clubbing Integumentary: Right breast mass with skin puckering and ulceration Neurological: Normal speech, Normal tone Assessment and plan Right breast mass abscess vs neoplasm Right lymghadenopathy General Surgery Dr. Head have consulted. Dr. Paz service planning punch/excisional biopsy Procedure not done today because patient complained of chest pain and her troponin trended up. -Continue doxycycline and cefepime -IVF Chest pain NSTEMI Troponin trended up. EKG unchanged from previous. Patient started on heparin drip, aspirin, Lipitor Add metoprolol. Cardiology consulted. Obtain echocardiogram. [facility] Hyponatremia -Serum glucose significantly improved. -Na 122/135 -Continue accucheck with SSI -IVF Hypertriglyceridemia Hyperlipidemia -Continue fenofibrate and atorvastatin started Hypotension Mitral valve prolapse Peripheral neuropathy -Patient is currently hypertensive -She started on metoprolol given NSTEMI -Gabapentin resumed for peripheral neuropathy DVT ppx: On heparin drip Full Code Discharge Plan: Home
[2024-08-12] MEDS: METOPROLOL TAR 25 MG TAB PO SCH (20:07)
[2024-08-12] MEDS: ATORVASTATIN 40 MG TAB PO SCH (20:07)
[2024-08-13 06:24] LABS: Absolute Eosinophils 0.1 K/uL (0-0.5); Absolute Lymphocytes (CBC) 1.5 K/uL (0.7-4.9); Absolute Monocytes 0.5 K/uL (0.1-1.3); Absolute Neutrophil 4.6 K/uL (1.8-8.0); Basophils % 0.4 % (0-1.3); Eosinophils % 1.9 % (0-4.4); Hematocrit 29.9 % (36.0-45.0); Hemoglobin 9.8 g/dL (12.0-15.0); Lymphocytes % 22.1 % (15.3-44.8); MCH 29.2 pg (27.0-35.0); MCHC 32.9 g/dL (32.0-36.0); MCV 88.9 fL (80-100); MPV 8.2 fL (7.6-11.3); Monocytes % 7.2 % (3.3-12.3); Neutrophils % 68.4 % (41.7-73.7); Nucleated Red Blood Cells % 0.1 % (0-0); Platelets 283 thou/uL (152-406); RBC Red Blood Cell Count 3.37 M/uL (3.86-4.86); Red Cell Distribution Width 13.4 % (12.1-15.2)
[2024-08-13 06:33] LABS: Anion Gap 9.9 mEq/L (5.0-15.0); Magnesium 1.6 mg/dL (1.6-2.4); Phosphorus 2.4 mg/dL (2.5-4.9); Potassium 3.9 mEq/L (3.5-5.1)
[2024-08-13] MEDS: ASPIRIN EC 81 MG TAB PO SCH (08:57)
[2024-08-13] MEDS: POTASS/SODIUM PHOSPHATE 1 PKT POWD.PACK PO SCH (08:57)
[2024-08-13] MEDS: POTASSIUM CL SA 10 MEQ TAB PO ONE (08:57)
[2024-08-13] MEDS: MAGNESIUM SULFATE 1 gm IVPB 1 GM/100 ML BAG IV ONE (09:03)
[2024-08-13] MEDS ORDERED: INSULIN GLARGINE 100 UNIT/ML SQ SCH (09:06)
[2024-08-13] MEDS: INSULIN GLARGINE 100 UNIT/ML SQ SCH (12:15)
--- NOTE | 2024-08-13 15:39 | P.PN ---
Subjective Date of Service: 08/13/24 Chief Complaint: [facility] Patient denies any chest pain today Troponin peaked at 150 and trended Patient has been afebrile. She denies shortness of breath. Physical Examination - Vital Signs Temperature: 99.3 F Blood Pressure: 156/83 Pulse: 92 Respirations: 14 Pulse Ox (%): 95 Assessment And Plan - Plan Physical Exam General: Alert, In no apparent distress, Oriented x3 HEENT: Atraumatic, Normocephalic, PERRLA Neck: Supple, no elevated JVD. Respiratory: Clear to auscultation bilaterally, Normal air movement Cardiovascular: No edema, Normal pulses, Regular rate/rhythm, Normal S1 S2 Gastrointestinal: Normal bowel sounds, Soft and benign Musculoskeletal: No clubbing Integumentary: Right breast mass with skin puckering and ulceration Neurological: Normal speech, no focal motor deficit. Assessment and plan Right breast mass abscess vs neoplasm Right lymghadenopathy General Surgery Dr. Head is following. Dr. Paz service planning punch/excisional biopsy Procedure not done because patient complained of chest pain and her troponin trended up. -Continue doxycycline and cefepime -IVF Chest pain NSTEMI Troponin trended up, peaked at 150 and then trended down. EKG unchanged from previous. Continue heparin drip, aspirin, Lipitor Continue metoprolol. Awaiting cardiology input Echocardiogram ordered. [facility] Hyponatremia -Serum glucose significantly improved. -Na 122/135 -Continue accucheck with SSI -start Semglee insulin and titrate. -IVF Hypertriglyceridemia Hyperlipidemia -Continue fenofibrate and atorvastatin started Hypotension Mitral valve prolapse Peripheral neuropathy -Patient is currently hypertensive -She started on metoprolol given NSTEMI -Continue gabapentin. DVT ppx: On heparin drip Full Code Discharge Plan: Home
--- NOTE | 2024-08-13 18:44 | CON ---
Date of Consultation: 08/11/2024 Brief History Of Present Illness: The patient is a 58-year-old female with a past medical history of diabetes, bipolar, neuropathy, hypotension at baseline, who presents to the ER with complaints of ri ght arm pain and generalized dizziness with some chest pain. She was found to be hyperglycemic with a serum glucose greater than 900. On examination, however, she was noted to have a right breast mass with skin ulceration. She states that this breast mass on my investigation has been there for appro ximately 3 years. She states she has been seen by multiple doctors at [facility] and other hospitals who simply stated she should follow up as an outpatient. No procedure was done while as an inpatient and therefore she has not had any proper workup for this breast mass. She has not followed up as an outpatient as she states she has a sick at home, whom she had been trying to take care of as he has significant medical history and medical comorbidities that require significant attention of h ers and therefore she has ignored her own health in this interim. She notes that this mass has alysia nued to get larger, firmer, more tender. She has never had a mammogram that she can recall or any ot her sort of workup for this breast mass. Past Medical History: Significant for hypotension, diabetes, bipolar, peripheral neuropathy. Past Surgical History: Only includes cholecystectomy. Home Medications: Include gabapentin. Allergies: TO PENICILLIN. Social History: She denies smoking, alcohol, or recreational drug use. Review of Systems: Ten-point review of systems other than HPI, she admits to arm pain and some swelling on the right arm . Physical Examination: General: She is awake, alert, and oriented. Psychiatric: She is appropriate and conversive. HEENT: She is normocephalic. Her sclerae are anicteric. Her mucous membranes are moist. Oropharyn x is clear. Neck: Supple without JVD. Chest: Normal expansion and excursion. Breasts: She has a large, firm, fixed mass and pagetoid appearance of the nipple-areolar complex at approximately the 1 o'clock position to the 9 o'clock position in a radial fashion with a fungating c omponent at the edge of the nipple-areolar complex. There is redness, scaling of the skin, and firm fixed mass under this which feel significantly larger probably in the range of 4 to 5 cm. Nipple has significant inversion. There is no discharge expressible, at this point. The remainder of the armando st has soft nonpathologic feeling tissue. Right axillary exam, I feel some fullness in the axillary region. However, I do not feel any obvious pathologic lymph nodes on examination, at this time. Jadyn ast exam on the left is unremarkable and axillary region is unremarkable. The remainder of the lymph node basins are not pathologically palpably positive. Cardiovascular: Regular rate and rhythm. Pulmonary: Clear to auscultation bilaterally. Abdomen: Soft, nontender, nondistended. No rebound. No guarding. No focal peritonitis. Extremities: No clubbing, cyanosis, or edema in 3 extremities. There is some slight swelling to the right arm without cellulitis or other changes. There is no edema to the area, however. The remaind er of her skin exam is unremarkable. Vital Signs: At the time of my examination, blood pressure was 162/78, pulse 87, respiratory rate 18 , temperature 97.7. Laboratory Data: Revealed a white blood cell count of 6.7, hemoglobin 12.6, hematocrit of 38.7, plat elet count was 371, neutrophils are 72%, PT is 9.8. INR was 0.87. Sodium 137, potassium 4.2, chlori de 103, carbon dioxide is 31, BUN 7, creatinine 0.55, glucose is 345, calcium 8.7, magnesium 1.9, tot al bilirubin was 0.9, AST 12, ALT 17, alkaline phosphatase was 161. Her proBNP was 280, albumin 2.9, triglycerides 426, cholesterol 307, LDL cholesterol direct 167. Her UA showed glucose 4+ trace protein. Her glucose at the time of admission however was 945. She had imaging performed, wh ich included a CT of the chest and abdomen, which showed a right breast mass which may represent neop lasm or abscess, gastric wall thickening could be secondary to inflammation or incomplete distention. Specifically, the right breast mass is 4 cm. Right breast mass with thickening, skin ulceration, m ild axillary lymphadenopathy on the right. She also has a 1.9 cm right adrenal lesion, probably ángela john, 4.2 cm mass abutting the uterus, could represent a subserosal fibroid or ovarian mass. Ultrasou nd is recommended. She additionally had a head CT which showed no acute intracranial findings and no hemorrhage. She had a chest x-ray, which showed no acute disease as well. Assessment And Plan: This is a 58-year-old woman who presents with signs and symptoms of chest pain with associated right breast mass and some right regional lymphadenopathy. 1.IV fluid hydration. 2.Antibiotic coverage for her breast mass. 3.Continue cardiovascular workup and cardiac clearance prior to consideration of any surgical interv ention. 4.Initiate metastatic workup. 5.bakery and deli sales manager involvement to ensure patient has appropriate resources and ability to follow up with this workup for her breast mass as this likely will require slightly more time than her admission wi ll require and I would want to make sure that the patient has followup for this breast mass to ensure it gets remediated in the most rapid fashion possible as I have a high index of suspicion that this is likely a breast cancer, possibly pagetoid in appearance. It does not have inflammatory components , but it does have a pagetoid appearance. 6.I would like to perform a biopsy of this breast mass while patient is admitted on this particular occasion. I have explained the risks, benefits, and alternatives of a right breast biopsy including but not limited to, bleeding, infection, damage to surrounding tissues, need for further operative pr ocedures, heart attacks, blood clots, stroke, other unforeseen complications in the perioperative per iod. The patient displayed understanding of the above stated plan, agreed to proceed as indicated. Thank you for this interesting consult. GINO/EMELIA Voice ID: [id number] Report ID: [id number]
[2024-08-14 07:57] LABS: Absolute Eosinophils 0.1 K/uL (0-0.5); Absolute Lymphocytes (CBC) 1.5 K/uL (0.7-4.9); Absolute Monocytes 0.6 K/uL (0.1-1.3); Absolute Neutrophil 4.9 K/uL (1.8-8.0); Basophils % 0.5 % (0-1.3); Eosinophils % 2.1 % (0-4.4); Hematocrit 32.5 % (36.0-45.0); Hemoglobin 10.6 g/dL (12.0-15.0); Lymphocytes % 20.6 % (15.3-44.8); MCH 29.1 pg (27.0-35.0); MCHC 32.5 g/dL (32.0-36.0); MCV 89.6 fL (80-100); Neutrophils % 68.8 % (41.7-73.7); Platelets 295 thou/uL (152-406); RBC Red Blood Cell Count 3.63 M/uL (3.86-4.86); Red Cell Distribution Width 13.6 % (12.1-15.2)
[2024-08-14 08:10] LABS: Anion Gap 8.7 mEq/L (5.0-15.0); Magnesium 1.9 mg/dL (1.6-2.4); Phosphorus 3.1 mg/dL (2.5-4.9); Potassium 4.7 mEq/L (3.5-5.1)
[2024-08-14] MEDS: INSULIN GLARGINE 100 UNIT/ML SQ SCH (09:00)
[2024-08-14] MEDS: VANCOMYCIN 1 GM in NA CHLORIDE 0.9% 250 ML IVPB SCH (13:03)
--- NOTE | 2024-08-14 15:56 | P.PN ---
Subjective Date of Service: 08/14/24 Chief Complaint: [facility] Patient complaining of arm burning with IV doxycycline. She denies any chest pain. Patient has been afebrile. She denies shortness of breath. Physical Examination - Vital Signs Temperature: 97.5 F Blood Pressure: 165/85 Pulse: 87 Respirations: 12 Pulse Ox (%): 93 Assessment And Plan - Plan Physical Exam General: Alert, In no apparent distress, Oriented x3 Neck: No elevated JVD. Respiratory: Clear to auscultation bilaterally, Normal air movement Cardiovascular: No edema, Normal pulses, Regular rate/rhythm, Normal S1 S2 Gastrointestinal: Normal bowel sounds, Soft and benign Musculoskeletal: No clubbing Integumentary: Right breast mass with skin puckering and ulceration Neurological: Normal speech, no focal motor deficit. Assessment and plan Right breast mass abscess vs neoplasm Right lymghadenopathy General Surgery Dr. Head is following. Dr. Paz service planning punch/excisional biopsy Procedure not done because patient complained of chest pain and her troponin trended up. -Continue cefepime -Doxycycline changed to vancomycin due to burning with doxycycline infusion -Continue IVF Chest pain NSTEMI Troponin trended up, peaked at 150 and then trended down. EKG unchanged from previous. Continue heparin drip, aspirin, Lipitor Continue metoprolol. Awaiting cardiology input Echocardiogram ordered. [facility] Hyponatremia -Serum glucose significantly improved. -Na 122/135 -Continue accucheck with SSI -Titrate Semglee. -IVF Hypertriglyceridemia Hyperlipidemia -Continue fenofibrate and atorvastatin. Hypotension Hypertension Mitral valve prolapse Peripheral neuropathy -Patient is currently hypertensive -Continue metoprolol given NSTEMI -Continue gabapentin. DVT ppx: On heparin drip Full Code Discharge Plan: Home
[2024-08-14] MEDS: METOPROLOL TAR 25 MG TAB PO SCH (17:10)
--- NOTE | 2024-08-15 02:08 | RAD REPORT ---
EXAM: CT chest angiography with intravenous contrast CLINICAL DATA: 58 years Female R/o PE. TECHNICAL DATA: Following the administration of intravenous contrast, multiple high-resolution axial images of the ch est were performed followed by sagittal and coronal reconstructed images. Coronal oblique MIP images were also performed. The CT study is performed according to ALARA (as low as reasonably achiev able) or ALARA/IMAGE GENTLY, with automatic adjustment of mA and/or kV according to patient size. Performed on: 08/15/2024 at 12:48 AM COMPARISONS: CT chest performed on 08/11/2024 FINDINGS: There is satisfactory visualization and contrast opacification of pulmonary arteries. No definite i ntra-arterial filling defects are identified to suggest acute or chronic pulmonary embolism. The thoracic aorta is normal in caliber and contour without evidence of aneurysm or dissection. The lungs are well expanded. There are trace bilateral pleural effusions and there is minimal bibasil ar dependent atelectasis and scattered areas of pleural parenchymal fibrosis. There are mild centrilobular emphysematous changes best appreciated in the upper lobes and superior segments of the lower lobes. There is no pneumothorax. The central airways are patent.. The heart is normal in size. There is trace pericardial fluid. There is no reflux of contrast into th e hepatic veins to suggest right heart strain. The RV/LV ratio is within normal limits. There are mild to moderate coronary artery calcifications. There is no evidence of hilar or mediastinal lymphadenopathy. There is right axillary lymphadenopathy and there is a large previously described soft tissue mass in the right breast with associated nipple retraction consistent with a breast carcinoma. No acute osseous abnormality is identified. The visualized upper abdominal structures are unremarkable. There is a small sliding-type hiatal [place]. IMPRESSION: 1. No evidence of acute or chronic pulmonary embolism, aortic aneurysm or aortic dissection. 2. Trace bilateral pleural effusions with minimal bibasilar dependent atelectasis and scattered are as of pleural parenchymal fibrosis. 3. Mild centrilobular emphysematous changes best appreciated in the upper lobes and superior segmen ts of the lower lobes. 4. Large previously described soft tissue mass in the right breast with associated nipple retractio n consistent with a breast carcinoma. 5. Right axillary lymphadenopathy. 6. Trace pericardial fluid. 7. Mild to moderate coronary artery calcifications. Electronically signed by: Janny Smith DO 08/15/2024 01:53 AM POWER ENGINEER Due to temporary technical issues with the [employer] reporting system, reports are being patric d by the in-house radiologist without review as a courtesy to ensure prompt reporting the interpreting radiologist is fully responsible for the content of the report. Transcribed Date/Time: 08/15/2024 2:08 AM
[2024-08-15 05:31] LABS: Absolute Eosinophils 0.2 K/uL (0-0.5); Absolute Lymphocytes (CBC) 1.8 K/uL (0.7-4.9); Absolute Monocytes 0.6 K/uL (0.1-1.3); Absolute Neutrophil 4.1 K/uL (1.8-8.0); Basophils % 0.3 % (0-1.3); Eosinophils % 2.8 % (0-4.4); Hematocrit 31.8 % (36.0-45.0); Hemoglobin 10.8 g/dL (12.0-15.0); Lymphocytes % 26.7 % (15.3-44.8); MCHC 34.1 g/dL (32.0-36.0); MPV 7.8 fL (7.6-11.3); Monocytes % 8.9 % (3.3-12.3); Neutrophils % 61.3 % (41.7-73.7); Nucleated Red Blood Cells % 0.1 % (0-0); Platelets 302 thou/uL (152-406); RBC Red Blood Cell Count 3.61 M/uL (3.86-4.86); Red Cell Distribution Width 13.4 % (12.1-15.2)
[2024-08-15 05:52] LABS: Magnesium 1.8 mg/dL (1.6-2.4); Phosphorus 2.7 mg/dL (2.5-4.9)
[2024-08-15] MEDS ORDERED: HEPA 1000U/500MLS 2,000 UNIT/1,000 ML BAG IV ONE (08:49)
[2024-08-15] MEDS ORDERED: LIDOCAINE 1% 20 ML MDV ONE (08:50)
[2024-08-15] MEDS ORDERED: ATROPINE SULF 1 MG/10 ML SYR IV ONE (08:50)
[2024-08-15] MEDS ORDERED: CLOPIDOGREL 75 MG TABLET ONE (08:50)
[2024-08-15] MEDS ORDERED: MIDAZOLAM HCL 2 MG/2 ML INJ ONE (08:50)
[2024-08-15] MEDS ORDERED: HEPARIN 10,000 UNIT/10 ML VIAL IV ONE (08:50)
[2024-08-15] MEDS ORDERED: ASPIRIN 325 MG TAB ONE (08:51)
[2024-08-15] MEDS ORDERED: HEPARIN 5000 UNIT/ML 1 ML VIAL ONE (08:51)
[2024-08-15] MEDS ORDERED: FENTANYL CITR 100 MCG/2 ML ONE (08:51)
[2024-08-15] MEDS ORDERED: TICAGRELOR 90 MG TABLET PO ONE (08:51)
[2024-08-15] MEDS: INSULIN GLARGINE 100 UNIT/ML SQ SCH (09:00)
--- NOTE | 2024-08-15 10:51 | P.CNS ---
Date of Consult: 08/15/24 Chief Complaint: HHNS History of Present Illness: Patient with PMH of tobacco use, admitted with right breast mass, cancer, also report having left side chest pain, intermittent, has been going on for few months, denies any other cardiac symptoms. Allergies Penicillins Allergy (Verified 08/11/24 10:15) UNK Home medications list reviewed: Yes Home Medications: Gabapentin [Neurontin] 800 mg PO TID 08/11/24 Tizanidine [Zanaflex] 8 mg PO BID 08/12/24 - Past Medical/Surgical History Diabetic: Yes -: Hypotension -: Diabetes mellitus -: Bipolar -: Peripheral neuropathy -: Cholecystectomy - Social History Alcohol use: No CD- Drugs: No Place of Residence: Home Review of Systems 10-point ROS is otherwise unremarkable Physical Examination Temp Pulse Resp BP Pulse Ox 98.5 F 86 16 139/76 97 08/15/24 08:00 08/15/24 08:00 08/15/24 08:00 08/15/24 08:00 08/15/24 08:00 General: Alert, In no apparent distress HEENT: Atraumatic, PERRLA, Mucous membr. moist/pink, EOMI, Sclerae nonicteric Neck: Supple, 2+ carotid pulse no bruit, No LAD, Without JVD or thyroid abnormality Respiratory: Clear to auscultation bilaterally, Normal air movement Cardiovascular: Regular rate/rhythm, Normal S1 S2 Gastrointestinal: Normal bowel sounds, No tenderness Musculoskeletal: No tenderness Integumentary: No rashes Neurological: Normal gait, Normal speech, Normal tone, Normal affect Lymphatics: No axilla or inguinal lymphadenopathy - Problems (1) NSTEMI (non-ST elevated myocardial infarction) Current Visit: Yes Status: Acute Plan: Troponin mild elevated but trending down, but report angina NPO for coronary angiogram ASA 81 mg daily Lipitor 40 mg daily Echo
[2024-08-15] MEDS: NA CHLORIDE 0.9% 500 ML ONE (11:33)
--- NOTE | 2024-08-15 14:27 | P.PN ---
Subjective Date of Service: 08/15/24 Chief Complaint: [facility] Patient has no new complain. She currently denies any chest pain. Physical Examination - Vital Signs Temperature: 98.5 F Blood Pressure: 132/74 Pulse: 84 Respirations: 16 Pulse Ox (%): 97 Assessment And Plan - Plan Physical Exam General: Alert, In no apparent distress, Oriented x3 Neck: No elevated JVD. Respiratory: Clear to auscultation bilaterally, Normal air movement Cardiovascular: No edema, Normal pulses, Regular rate/rhythm, Normal S1 S2 Gastrointestinal: Normal bowel sounds, Soft and benign Integumentary: Right breast mass with skin puckering, nipple retraction and ulceration Neurological: Normal speech, no focal motor deficit. Assessment and plan Right breast mass likely malignant. Right lymghadenopathy General Surgery Dr. Head is following. Dr. Paz is planning punch/incisional biopsy Procedure not done yet because patient complained of chest pain and her troponin trended up. -Continue cefepime and vancomycin -Continue IVF -Dr. Paz plan to obtain biopsy after cardiac preop eval. Chest pain NSTEMI Troponin trended up, peaked at 150 and then trended down. EKG unchanged from previous. Patient is on heparin drip, aspirin, Lipitor Continue metoprolol. Cardiology Dr. Mosley input appreciated Echocardiogram ordered. Patient is scheduled for cardiac catheterization today. [facility] Hyponatremia -Serum glucose significantly improved. -Na 122/135 -Continue accucheck with SSI -Semglee titrated to 25 units daily -IVF Hypertriglyceridemia Hyperlipidemia -Continue fenofibrate and atorvastatin. Hypotension Hypertension Mitral valve prolapse Peripheral neuropathy -Patient became hypertensive and now normotensive. -Continue metoprolol given NSTEMI -Continue gabapentin. DVT ppx: On heparin drip Full Code Discharge Plan: Home
[2024-08-15] MEDS: NA CHLORIDE 0.9% 1,000 ML IV SCH (15:00)
--- NOTE | 2024-08-15 17:29 | EKG ---
Test Date: 2024-08-12 Test Time: 15:08:41 Maintenance And Utilities Supervisor: NATHANIEL MEASUREMENT RESULTS: Intervals: Rate: 92 LA: 152 QRSD: 104 QT: 394 QTc: 487 [place]: P: 68 LA: 152 QRS: -52 T: -11 INTERPRETIVE STATEMENTS: Normal sinus rhythm Left axis deviation Nonspecific ST and T wave abnormality Prolonged QT Abnormal ECG Compared to ECG 08/11/2024 01:11:42 ST (T wave) deviation now present Prolonged QT interval now present Myocardial infarct finding no longer present Electronically Signed On 08-15-24 17:22:40 [employer] by Jose Sosa
--- NOTE | 2024-08-15 17:35 | EKG ---
Test Date: 2024-08-11 Test Time: 01:11:42 Extrusion Former: VERONICA MEASUREMENT RESULTS: Intervals: Rate: 83 AR: 158 QRSD: 106 QT: 370 QTc: 434 [place]: P: 72 AR: 158 QRS: -54 T: -13 INTERPRETIVE STATEMENTS: Normal sinus rhythm Left axis deviation Anterolateral infarct, age undetermined Abnormal ECG No previous ECG available for comparison Electronically Signed On 08-15-24 17:24:22 [employer] by Jose Sosa
[2024-08-15] MEDS: TICAGRELOR 90 MG TABLET PO SCH (21:08)
[2024-08-16 05:35] LABS: Absolute Eosinophils 0.1 K/uL (0-0.5); Absolute Lymphocytes (CBC) 1.6 K/uL (0.7-4.9); Absolute Monocytes 0.8 K/uL (0.1-1.3); Absolute Neutrophil 5.3 K/uL (1.8-8.0); Basophils % 0.5 % (0-1.3); Eosinophils % 1.7 % (0-4.4); Hematocrit 32.5 % (36.0-45.0); Hemoglobin 10.9 g/dL (12.0-15.0); Lymphocytes % 19.8 % (15.3-44.8); MCH 29.8 pg (27.0-35.0); MCHC 33.6 g/dL (32.0-36.0); MCV 88.7 fL (80-100); MPV 7.5 fL (7.6-11.3); Monocytes % 10.4 % (3.3-12.3); Neutrophils % 67.6 % (41.7-73.7); Nucleated Red Blood Cells % 0.1 % (0-0); Platelets 309 thou/uL (152-406); RBC Red Blood Cell Count 3.67 M/uL (3.86-4.86); Red Cell Distribution Width 13.7 % (12.1-15.2)
[2024-08-16 05:50] LABS: Magnesium 1.8 mg/dL (1.6-2.4)
[2024-08-16] MEDS: ASPIRIN EC 81 MG TAB PO SCH (08:04)
[2024-08-16] MEDS: MAGNESIUM SULFATE 1 gm IVPB 1 GM/100 ML BAG IV ONE (08:04)
--- NOTE | 2024-08-16 08:35 | P.PN ---
Date of Service: 08/16/24 Subjective: had cardiac stent placed yesterday feels redness swelling around breast mass is improving tentative plan to get breast biopsy tomorrow no events overnight ROS: 10 point ROS as noted above, otherwise negative Physical Exam: GEN: Alert, oriented, NAD CV: Regular rate and rhythm, no edema Pulm: Nonlabored respirations on room air, clear bilaterally ABD: soft, nontender, nondistended Integumentary: Right breast mass with skin puckering and ulceration Neuro: Normal speech, normal affect Problem List: Right breast mass likely malignant Right lymghadenopathy NSTEMI CAD s/p PCI HHNS PseudoHyponatremia - secondary to hyperglycemia Hypertriglyceridemia Hyperlipidemia Hypertension Mitral valve prolapse Peripheral neuropathy Right breast mass likely malignant Right lymphadenopathy CT chest/abd (08/11): right breast mass may represent neoplasm/abscess. Gastric wall thickening could be secondary to inflammation or incomplete distention R axillary u/s (08/11): 1 cm spiculated mass right axilla probably a metastatic lymph node Pelvic u/s (08/12): Extremely limited study d/t bowel gas. Noted enlarged uterus at least 12 cm. Uterine mass/fibroids likely present CTA chest (08/15): Large previously described soft tissue mass in the right breast consistent with a breast carcinoma. Right axillary lymphadenopathy General Surgery Dr. Paz is following. planning punch/incisional biopsy Continue empiric cefepime and vancomycin NSTEMI CAD s/p PCI (08/15/24) Troponins mildly elevated but trended flat. Peak 150 s/p heparin drip (08/12-08/15) continue aspirin, statin, metoprolol Cardiology is following echo ordered to eval EF / stenosis s/p C with stent placement yesterday. Official report pending Brilinta started 08/15 HHNS PseudoHyponatremia - secondary to hyperglycemia accu-cheks, SSI continue semglee; increased to 25u BID 08/15 Hypertriglyceridemia Hyperlipidemia continue fenofibrate and atorvastatin. Hypertension Mitral valve prolapse Peripheral neuropathy continue home metoprolol, gabapentin PRN hydralazine Code: Full Dispo: Home, 1-2 days tentative plan for biopsy tomorrow Time Spent Managing Pts Care (In Minutes):45
[2024-08-16] MEDS ORDERED: ASPIRIN 325 MG TAB PO SCH (09:00)
[2024-08-16] MEDS ORDERED: D10W 125 ML IV PRN (14:07)
[2024-08-16] MEDS ORDERED: GLUCAGON 1 MG/VIAL IM PRN (14:07)
--- NOTE | 2024-08-16 14:38 | P.PN ---
Subjective Date of Service: 08/16/24 Chief Complaint: HHNS Subjective: No new changes, No C/O voiced, Tolerating diet, Ambulating, Improving Review of Systems 10-point ROS is otherwise unremarkable Physical Examination - Vital Signs Temperature: 98.5 F Blood Pressure: 152/78 Pulse: 92 Respirations: 18 Pulse Ox (%): 97 - Physical Exam General: Alert, In no apparent distress HEENT: Atraumatic, PERRLA, EOMI Neck: Supple, JVD not distended Respiratory: Clear to auscultation bilaterally, Normal air movement Cardiovascular: Regular rate/rhythm, Normal S1 S2 Gastrointestinal: Normal bowel sounds, No tenderness Musculoskeletal: No tenderness Integumentary: No rashes Neurological: Normal speech, Normal tone, Normal affect Lymphatics: No axilla or inguinal lymphadenopathy - Studies Medications List Reviewed: Yes Assessment And Plan - Current Problems (Diagnosis) (1) NSTEMI (non-ST elevated myocardial infarction) Current Visit: Yes Status: Acute Plan: Coronary angiogram done and that shown significant mid RCA disease s/p PCI with Synergy 2.5x32 overlapped with Synergy 2.5x20 mm ELI. ASA 81 mg daily Brilinta 90 mg po BID for 12 months (if it needs to be stopped due to surgery then can not be done until 4 weeks) Lipitor 40 mg daily Echo
--- NOTE | 2024-08-16 19:42 | OP ---
Date of Procedure: 08/15/2024 Surgeon: Walt Mosley Procedures Performed: 1. Selective coronary angiogram. 2. PCI of the RCA with Synergy 2.5 x 32 mm drug-eluting stent overlapped with 2.5 x 20 mm drug-eluting stents. Indication For Procedure: [id number]. Access: Right radial, closed by TR band. Sedation Time: 30 minutes with 1 of Versed and 50 of fentanyl. Complications: None. Estimated Blood Loss: Less than 50 cc. Description Of Procedure: After risks, and benefits, and alternatives were explained to the patient, patient agreed to proceed with the procedure and signed informed consent. The patient was brought back to the laborer pipeline, prepped and draped in sterile fashion. Time-out was performed. Sedation was administered. Next, the right radial access was obtained using an ultrasound- guided micropuncture technique. [place] 4.0 catheter was advanced over a J-wire to the LV cavity. LVEDP was obtained. Pullback did not show any gradient. Same catheter was used for selective angiogram of the left and right coronary systems. That catheter was later exchanged for a JR4 guide. Runthrough wire was passed across the lesion and pre-dilated the lesion with an NC 2.5 mm balloon. Next, Synergy 2.5 x 32 mm drug-eluting stent was placed across the mid to distal RCA that was overlapped with another 2.5 x 20 mm drug-eluting stent that was placed across the mid to proximal RCA. Repeat angiogram shows IMMANUEL-3 flow. Catheter was removed over a J-wire. Sheath was removed. TR band was applied. Hemostasis was achieved and patient was moved back to Recovery in stable condition. Heparin was administered during the procedure and ACT was therapeutic all the time. Findings: 1. Left main; ostial 30% disease. 2. LAD; mild luminal irregularities. 3. Left circ; small mild luminal irregularities. 4. RCA; mid 99% disease, status post PCI with Synergy 2.5 x 32 overlapped with another Synergy 2.5 x 20 mm drug-eluting stents. Assessment And Plan: Significant mid RCA disease, status post PCI with Synergy 2.5x32 overlapped with 2.5x 20 mm drug-eluting stents. The plan will be: 1. Aspirin 81 mg daily for life. 2. Brilinta 180 mg x1 was given in the laborer pipeline. Continue Brilinta 90 mg p.o. b.i.d. for 12 months. 3. If patient needs the interruption of dual antiplatelet therapy, then this can be done in 4 weeks with stopping Brilinta 5 days prior to any procedure as she has a breast mass, which is most likely a breast cancer. ANA PAULA Voice ID: [id number] Report ID: [id number] SAJI
[2024-08-16] MEDS: MORPHINE 2 MG/ML SYR IV PRN (20:35)
[2024-08-17 05:46] LABS: Anion Gap 10.1 mEq/L (5.0-15.0); Magnesium 1.8 mg/dL (1.6-2.4); Potassium 4.1 mEq/L (3.5-5.1)
[2024-08-17] MEDS: INSULIN GLARGINE 100 UNIT/ML SQ SCH (08:54)
--- NOTE | 2024-08-17 12:15 | P.PN ---
Date of Service: 08/17/24 Subjective: seen after biopsy doing ok no new/worsening symptoms discussed uterine mass ROS: 10 point ROS as noted above, otherwise negative Physical Exam: GEN: Alert, oriented, NAD CV: Regular rate and rhythm, no edema Pulm: Nonlabored respirations on room air, clear bilaterally ABD: soft, nontender, nondistended Integumentary: Right breast mass with skin puckering and ulceration Neuro: Normal speech, normal affect Problem List: Right breast mass likely malignant Right lymghadenopathy NSTEMI CAD s/p RCA PCI (08/15/24) HHNS PseudoHyponatremia - secondary to hyperglycemia Hypertriglyceridemia Hyperlipidemia Hypertension Mitral valve prolapse Peripheral neuropathy Right breast mass likely malignant Right lymphadenopathy CT chest/abd (08/11): right breast mass may represent neoplasm/abscess. Gastric wall thickening could be secondary to inflammation or incomplete distention R axillary u/s (08/11): 1 cm spiculated mass right axilla probably a metastatic lymph node Pelvic u/s (08/12): Extremely limited study d/t bowel gas. Noted enlarged uterus at least 12 cm. Uterine mass/fibroids likely present CTA chest (08/15): Large previously described soft tissue mass in the right breast consistent with a breast carcinoma. Right axillary lymphadenopathy General Surgery Dr. Paz is following. biopsy done today, with some oozing blood de-escalate IV cefepime/vanc to keflex today NSTEMI CAD s/p RCA PCI (08/15/24) Troponins mildly elevated but trended flat. Peak 150 s/p heparin drip (08/12-08/15) continue aspirin, statin, metoprolol Cardiology is following echo ordered to eval EF / stenosis s/p LHC (08/15); found to have 30% ostial LAD stenosis, LAD with mild luminal irregularities, left circ with small mild luminal irregularities, RCA with 99% mid stenosis s/p PCI Brilinta started 08/15; will need to continue for 1 year. HHNS PseudoHyponatremia - secondary to hyperglycemia accu-cheks, SSI continue semglee; increased to 25u BID 08/15 a1c > 14 (08/17) Hypertriglyceridemia Hyperlipidemia continue fenofibrate and atorvastatin. Hypertension Mitral valve prolapse Peripheral neuropathy continue home metoprolol, gabapentin PRN hydralazine Code: Full Dispo: Home, likely tomorrow tentative plan for biopsy today Time Spent Managing Pts Care (In Minutes):45
[2024-08-17] MEDS: CEPHALEXIN 500 MG CAP PO SCH (13:00)
[2024-08-17] MEDS: NA CHLORIDE 0.9% 1,000 ML ONE (14:56)
[2024-08-17] MEDS ORDERED: propofoL 200 MG/20 ML VIAL IV ONE (15:28)
[2024-08-17] MEDS ORDERED: LIDOCAINE 2% MPF 5 ML VIAL ONE (15:28)
[2024-08-17] MEDS ORDERED: ONDANSETRON 4 MG/2 ML VIAL ONE (15:28)
[2024-08-17] MEDS ORDERED: MIDAZOLAM HCL 2 MG/2 ML INJ ONE (15:29)
[2024-08-17] MEDS ORDERED: FENTANYL CITR 100 MCG/2 ML ONE (15:29)
[2024-08-17] MEDS: LIDOCAINE HCL/EPINEPHRINE 20 ML MDV ONE (16:07)
--- NOTE | 2024-08-17 16:21 | P.OP ---
Preoperative diagnosis: RIGHT Breast Fungating Mass Postoperative diagnosis: RIGHT Breast Fungating Mass Primary procedure: Biopsy of RIGHT Breast Mass Anesthesia: MAC + Local Estimated blood loss: <5cc Specimen: 2 Breast specimen Findings: Fungating Mass of RIGHT Breast Complications: None Transferred to: Recovery Room Condition: Good
[2024-08-18 00:38] VITALS: O2SAT 96
--- NOTE | 2024-08-18 04:16 | OP ---
Date of Procedure: 08/17/2024 Surgeon: Genaro Paz MD, Preoperative Diagnosis: Right breast fungating mass. Postoperative Diagnosis: Right breast fungating mass. Procedure: Biopsy of right breast fungating mass. Anesthesia: MAC plus local 1% lidocaine. Estimated Blood Loss: Less than 5 cc. Specimen: Two breast specimen from the right breast, 1 from fungating mass, 1 from the nipple-areola r complex. Findings: Fungating mass of the right breast at the nipple-areolar complex, consistent with possible pagetoid appearance. Complications: None. Disposition: The patient transferred to recovery room in good condition. Procedure In Detail: After informed was obtained, the patient was brought to the operating room, pre pped and draped in the usual sterile fashion. After adequate anesthesia was achieved, I made an radha ptical incision at the nipple-areolar complex down to subcutaneous tissues removing an area of obviou s abnormal tissue. I sent this specimen off for pathologic examination. I then attempted to close i t. However, it would not hold the suture and as such I closed the nipple-areolar complex aspect of i t with a vertical mattress suture of 3-0 nylon and the remainder of the wound was packed with quarter -inch iodoform packing and Surgicel placed over the top. I then removed a fungating piece of tissue using the flexible Dermablade and sent this off for pathologic examination as specimen #2. I then fu lgurated the area with electrocautery and then packed it also with Surgicel and a sterile dressing wa s placed over the top. The patient tolerated the procedure without incident or complication, and transferred to PACU in good condition. All counts we re correct at the end of the case. GINO/EMELIA Voice ID: [id number] Report ID: [id number]
[2024-08-18 06:21] LABS: Anion Gap 5.5 mEq/L (5.0-15.0); Magnesium 1.9 mg/dL (1.6-2.4); Potassium 4.5 mEq/L (3.5-5.1)
--- NOTE | 2024-08-18 09:38 | P.DS ---
Admission Date: 08/11/24 Discharge Date: 08/18/24 Disposition: ROUTINE DISCHARGE Discharge Condition: GOOD Reason for Admission: [facility] Consultations: Cardiology - Dr. Mosley, Dr. Sosa General surgery - Dr. Paz Brief History of Present Illness: 58 yo F, PMH: diabetes mellitus, bipolar, neuropathy, hypotension Patient presents to the ED with right arm pain and general dizziness with chest pain. Evaluation in the ED she was found to be hyperglycemic with serum glucose greater than 900. On examination, right arm with full ROM, Right breast with mass and skin ulceration, conversing well, no acute distress, hypotensive, lungs sound clear. Laboratory evaluation significant for serum glucose 946, sodium 122, BNP 280, UA negative for infectious process. Initial vitals BP 105 / 80; Pulse 84; Resp 17 S; Temp 97.8(O); Pulse Ox 97% on R/A CT CAP reports IMPRESSION: Right breast mass may represent neoplasm or abscess. Gastric wall thickening could be secondary to inflammation or incomplete dis tention.1.9 cm right adrenal lesion probably an adenoma. Follow-up washout CT recommended in one year. If stable greater than one-year no further follow-up would be recommended. 4.2 cm mass abutting the uterus could represent a subserosal fibroid or ovarian mass. Ultrasound recommended." Karlene will be admitted to hospital service for further evaluation and treatment of HHNS and right breast mass, Dr. Paz consulted. Hospital Course: Problem List: Right breast mass likely malignant Right lymghadenopathy NSTEMI CAD s/p RCA PCI (08/15/24) HHNS PseudoHyponatremia - secondary to hyperglycemia Hypertriglyceridemia Hyperlipidemia Hypertension Mitral valve prolapse Peripheral neuropathy Physician discharge instructions: Patient presented with chest pain, dizziness, right arm pain. Troponins were noted to be mildly elevated but trended flat (peak 150). Cardiology was consulted. She was restarted on her home cardiac meds and started on a heparin drip. (08/12-08/15) Patient underwent left heart cath which showed significant RCA disease with 99% mid stenosis s/p PCI (full report below). She was started on DAPT with aspirin, brilinta 08/16. Patient is to continue brilinta for 12 months and aspirin 81 mg for life. New prescriptions sent for Brilinta 90 mg twice daily, metoprolol 25 mg twice daily, aspirin 81 mg, atorvastatin 40 mg at bedtime. Check blood pressure around the same time each day. If systolic blood pressure is < 105, hold metoprolol. Follow up with cardiology in near future for further management and adjustments of medications. During early hospitalization, Dr. Paz was initially planning for punch/excisional biopsy to further evaluate right breast mass concerning for malignancy but the procedure was delayed due to new onset chest pain, uptrending troponins. CT chest initially noted right breast mass concerning for neoplasm/cancer. CTA performed 08/15 confirmed previously seen soft tissue mass in the right breast to be consistent with a breast carcinoma, also noted right axillary lymphadenopathy. Patient underwent right breast biopsy on 08/17, results pending upon discharge. Patient will need to follow up with oncology for further management and to discuss biopsy results. Recommend completing 1 week of keflex. Start dressing changes 08/19 evening. Local wound care per Dr. Paz: Remove all dressings irrigate area with sterile saline repacked with 1/4 inch iodoform packing placed sterile dressing over the top use. Surgicel as needed In ED, patient was found to be severely hyperglycemic with glucose levels > 900. She was given insulin and 3L IVF bolus and had improvement. a1c this hospitalization > 14. She reports some noncompliance with her insulin at home due to difficult administrating by herself. She received semglee while hospitalized, and titrated up until her glucose levels were more consistently in 200s. Discussed importance as to not miss further doses to reduce further episodes. Continue Toujeo as prescribed. No change in insulin regimen. Check glucose levels around the same time each day before and after meals. Keep daily diary of readings to take to follow up appointments for further adjustments. Follow up with PCP in ~1 week for further managmenet Medications: Brilinta 90 mg twice daily for 12 months Aspirin 81 mg daily for life Keflix 500 mg 4 times a day for 1 week atorvastatin 40 mg at bedtime Metoprolol 25 mg twice daily No change in insulin regimen. Continue Toujeo as previously prescribed Follow up: PCP 3-5 days Cardiology in 1-2 weeks Oncology in near future Left Heart Cath: 1. Left main; ostial 30% disease. 2. LAD; mild luminal irregularities. 3. Left circ; small mild luminal irregularities 4. RCA; mid 99% disease, status post PCI with Synergy 2.5 x 32 overlapped withanother Synergy 2.5 x 20 mm drug-eluting stents Physical Exam: GEN: Alert, oriented, NAD CV: Regular rate and rhythm, no edema Pulm: Nonlabored respirations on room air, clear bilaterally ABD: soft, nontender, nondistended Integumentary: Right breast mass with skin puckering and ulceration, dressing in place Neuro: Normal speech, normal affect Vital Signs/Physical Exam: Temp Pulse Resp BP Pulse Ox 97.2 F 90 17 112/58 L 93 08/18/24 04:00 08/18/24 05:53 08/18/24 05:55 08/18/24 05:53 08/18/24 05:55 Laboratory Data at Discharge: WBC 7.90 thou/uL (4.3-10.9) 08/16/24 05:14 Hgb 10.9 g/dL (12.0-15.0) L 08/16/24 05:14 Hct 32.5 % (36.0-45.0) L 08/16/24 05:14 Plt Count 309 thou/uL (152-406) 08/16/24 05:14 PT 11.5 SECONDS (9.4-12.5) 08/12/24 15:58 INR 1.03 08/12/24 15:58 APTT 51.3 SECONDS (24.3-36.9) H 08/15/24 05:03 Sodium 139 mEq/L (136-145) 08/18/24 05:51 Potassium 4.5 mEq/L (3.5-5.1) 08/18/24 05:51 BUN 17 mg/dL (7-18) 08/18/24 05:51 Creatinine 0.62 mg/dL (0.55-1.02) 08/18/24 05:51 Glucose 213 mg/dL (74-106) H 08/18/24 05:51 Phosphorus 3.0 mg/dL (2.5-4.9) 08/16/24 05:16 Magnesium 1.9 mg/dL (1.6-2.4) 08/18/24 05:51 Total Bilirubin 0.2 mg/dL (0.2-1.0) 08/11/24 01:19 AST 12 U/L (15-37) L 08/11/24 01:19 ALT 17 U/L (13-56) 08/11/24 01:19 Alkaline Phosphatase 161 U/L (45-117) H 08/11/24 01:19 Triglycerides 426 mg/dL (<150) H 08/11/24 11:28 Cholesterol 305 mg/dL (<200) H 08/11/24 11:28 LDL Cholesterol Direct 167 mg/dL (100-129) H 08/11/24 11:28 HDL Cholesterol 51 mg/dL (40-60) 08/11/24 11:28 Cholesterol/HDL Ratio 5.98 08/11/24 11:28 Home Medications: Gabapentin [Neurontin] 800 mg PO TID 08/11/24 Tizanidine [Zanaflex*] 8 mg PO BID 08/12/24 Atorvastatin Calcium [Lipitor] 40 mg PO BEDTIME 30 Days #30 tab 08/18/24 Cephalexin [Keflex*] 500 mg PO QID 7 Days #28 cap 08/18/24 Metoprolol Tartrate [Lopressor*] 25 mg PO BID 30 Days #60 tab 08/18/24 Ticagrelor [Brilinta*] 90 mg PO BID 30 Days #60 tab 08/18/24 New Medications: Ticagrelor [Brilinta*] 90 mg PO BID 30 Days #60 tab Cephalexin [Keflex*] 500 mg PO QID 7 Days #28 cap Atorvastatin Calcium [Lipitor] 40 mg PO BEDTIME 30 Days #30 tab Metoprolol Tartrate [Lopressor*] 25 mg PO BID 30 Days #60 tab Physician Discharge Instructions: Physician discharge instructions: Patient presented with chest pain, dizziness, right arm pain. Troponins were noted to be mildly elevated but trended flat (peak 150). Cardiology was consulted. She was restarted on her home cardiac meds and started on a heparin drip. (08/12-08/15) Patient underwent left heart cath which showed significant RCA disease with 99% mid stenosis s/p PCI (full report below). She was started on DAPT with aspirin, brilinta 08/16. Patient is to continue brilinta for 12 months and aspirin 81 mg for life. New prescriptions sent for Brilinta 90 mg twice daily, metoprolol 25 mg twice daily, aspirin 81 mg, atorvastatin 40 mg at bedtime. Check blood pressure around the same time each day. If blood pressure is consistently < 100, stop metoprolol. Follow up with cardiology in near future for further management and adjustments of medications. During early hospitalization, Dr. Paz was initially planning for punch/excisional biopsy to further evaluate right breast mass concerning for malignancy but the procedure was delayed due to new onset chest pain, uptrending troponins. CT chest initially noted right breast mass concerning for neoplasm/cancer. CTA performed 08/15 confirmed previously seen soft tissue mass in the right breast to be consistent with a breast carcinoma, also noted right axillary lymphadenopathy. Patient underwent right breast biopsy on 08/17, results pending upon discharge. Patient will need to follow up with oncology for further management and to discuss biopsy results. Recommend completing 1 week of keflex. Continue local wound care per Dr. Pza: Remove all dressings irrigate area with sterile saline repacked with 1/4 inch iodoform packing placed sterile dressing over the top use. Surgicel as needed In ED, patient was found to be severely hyperglycemic with glucose levels > 900. She was given insulin and 3L IVF bolus and had improvement. a1c this hospitalization > 14. She reports some noncompliance with her insulin at home due to difficult administrating by herself. She received semglee while hospitalized, and titrated up until her glucose levels were more consistently in 200s. Discussed importance as to not miss further doses to reduce further episodes. Continue Toujeosol as prescribed. No change in insulin regimen. Check glucose levels around the same time each day before and after meals. Keep daily diary of readings to take to follow up appointments for further adjustments. Follow up with PCP in ~1 week for further managmenet Medications: Brilinta 90 mg twice daily for 12 months Aspirin 81 mg daily for life Keflix 500 mg 4 times a day for 1 week atorvastatin 40 mg at bedtime Metoprolol 25 mg twice daily No change in insulin regimen. Continue Toujeosol as previously prescribed Follow up: PCP 3-5 days Cardiology in 1-2 weeks Oncology in near future Left Heart Cath: 1. Left main; ostial 30% disease. 2. LAD; mild luminal irregularities. 3. Left circ; small mild luminal irregularities 4. RCA; mid 99% disease, status post PCI with Synergy 2.5 x 32 overlapped withanother Synergy 2.5 x 20 mm drug-eluting stents Diet: Regular Activity: Ad deshawn Followup: Genaro Paz MD [ACTIVE - CAN ADMIT] - Karlene Andrade NP [Primary Care Provider] - Time spent managing pt's care (in minutes): 45
[2024-08-18 10:02] VITALS: BP 114/63; TEMP 97.3
== END 2024-08-18 11:10 | disposition home or self-care (01) | DRG 628 ==
LOC: ER 00:51 → ERHOLD 09:53 → 2ND 16:04
PROVIDERS: ADMIT Internal Medicine; ATTEND Hospitalist
PROC: 027035Z Dilation of Coronary Artery, One Artery with Two Drug-eluting Intraluminal Devices, Percutaneous Approach (ICD-10-PCS; 2024-08-15)
PROC: 4A023N7 Measurement of Cardiac Sampling and Pressure, Left Heart, Percutaneous Approach (ICD-10-PCS; 2024-08-15)
PROC: B2111ZZ Fluoroscopy of Multiple Coronary Arteries using Low Osmolar Contrast (ICD-10-PCS; 2024-08-15)
PROC: 0HBW0ZX Excision of Right Nipple, Open Approach, Diagnostic (ICD-10-PCS; principal; 2024-08-17 15:49)
DX: E11.00 Type 2 diabetes mellitus with hyperosmolarity without nonketotic hyperglycemic-hyperosmolar coma (NKHHC) (principal); I21.4 Non-ST elevation (NSTEMI) myocardial infarction; E87.1 Hypo-osmolality and hyponatremia; C50.911 Malignant neoplasm of unspecified site of right female breast; E86.0 Dehydration; N63.0 Unspecified lump in unspecified breast; E11.42 Type 2 diabetes mellitus with diabetic polyneuropathy; E78.5 Hyperlipidemia, unspecified; I95.9 Hypotension, unspecified; E78.1 Pure hyperglyceridemia; F31.9 Bipolar disorder, unspecified; I34.1 Nonrheumatic mitral (valve) prolapse; L98.499 Non-pressure chronic ulcer of skin of other sites with unspecified severity; I25.119 Atherosclerotic heart disease of native coronary artery with unspecified angina pectoris; F17.200 Nicotine dependence, unspecified, uncomplicated; T38.3X6A Underdosing of insulin and oral hypoglycemic [antidiabetic] drugs, initial encounter; R59.1 Generalized enlarged lymph nodes; Z88.0 Allergy status to penicillin; Z90.49 Acquired absence of other specified parts of digestive tract; Z79.899 Other long term (current) drug therapy; Z91.148 Patient's other noncompliance with medication regimen for other reason
CPT/HCPCS: 36415; 70450; 71045; 71260; 71275; 74177; 76641; 76856; 76882; 76937; 80048; 80061; 80076; 80202; 81001; 82947; 83036; 83735; 83880; 84100; 84439; 84443; 84484; 85025; 85610; 85730; 88305; 93005; 93454; 96361; 96374; 96375; 97116; 97161; 97530; 99152; 99153; 99285; C1725; C1893; C9600; J0360; J0461; J0692; J1644; J2003; J2250; J2270; J2405; J2704; J3010; J3475; J7030; J7040; J7050; Q9967

== ENCOUNTER 2024-09-23 12:05 | Emergency (ER) | payer OTHER ==
[2024-09-23] MEDS ORDERED: NA CHLORIDE 0.9% 500 ML ONE (12:19)
[2024-09-23] MEDS ORDERED: FENTANYL CITR 100 MCG/2 ML ONE ×3 (12:19→15:37)
[2024-09-23 12:34] LABS: Absolute Basophils 0.1 K/uL (0-0.5); Absolute Eosinophils 0.1 K/uL (0-0.5); Absolute Lymphocytes (CBC) 1.1 K/uL (0.7-4.9); Absolute Monocytes 1.1 K/uL (0.1-1.3); Absolute Neutrophil 9.5 K/uL (1.8-8.0); Basophils % 0.6 % (0-1.3); Eosinophils % 0.6 % (0-4.4); Hematocrit 37.2 % (36.0-45.0); Hemoglobin 11.6 g/dL (12.0-15.0); Lymphocytes % 9.2 % (15.3-44.8); MCH 28.2 pg (27.0-35.0); MCHC 31.2 g/dL (32.0-36.0); MCV 90.4 fL (80-100); MPV 7.4 fL (7.6-11.3); Monocytes % 9.1 % (3.3-12.3); Neutrophils % 80.5 % (41.7-73.7); Platelets 339 thou/uL (152-406); RBC Red Blood Cell Count 4.11 M/uL (3.86-4.86); Red Cell Distribution Width 14.6 % (12.1-15.2)
[2024-09-23 12:50] LABS: Anion Gap 8.5 mEq/L (5.0-15.0); Potassium 3.5 mEq/L (3.5-5.1)
--- NOTE | 2024-09-23 13:06 | RAD REPORT ---
EXAM: CT brain without contrast HISTORY: fall, blood thinners COMPARISON: 08/11/2024 TECHNIQUE: Multiple contiguous axial images were obtained and a CT of the brain without contrast. Sag ittal and coronal reformats were performed. FINDINGS: No evidence of hydrocephalus, intracranial hemorrhage, or extra-axial fluid collection. The brain is normal in morphology. No acute calvarial fractures. Small region of osseous groundglass pattern lucency involving the masto id portion of the left temporal bone, extending towards the occipitomastoid junction, measures 2.3 x 2.4 cm in greatest AP X CC extent, with mildly expansile features. This region directly underlies t he transverse/sigmoid sinus junction, with no discrete evidence of a mass or sinus abnormality within limits of noncontrast evaluation. Left maxillary sinus versus retention cyst. Mastoid air cell s are otherwise essentially clear. IMPRESSION: No evidence of acute intracranial abnormality. Stable region of groundglass pattern lucency within the mastoid portion of the left temporal bone, no nspecific, but may suggest focal Paget's disease involvement. Other considerations including focal fibrous dysplasia or a metastatic lesion are considered less likely. EXAM: CT of the cervical spine without contrast HISTORY: fall, blood thinners COMPARISON: None TECHNIQUE: Multiple contiguous axial images were obtained in a CT of the cervical spine without contr ast. Sagittal and coronal reformats were performed. FINDINGS: The vertebral bodies demonstrate normal height. Gentle reversal of lordosis which may be po sitional or secondary to muscle spasm. Moderate to advanced regional spondylotic changes at C5-6 and C6-7, uncovertebral joint and facet arthropathy contributing to mild to moderate degrees of neura l foraminal narrowing bilaterally at C6-7, and on the left at C5-6. No evidence of acute fracture or subluxation.. No degenerative changes are present. No prevertebral soft tissue swelling is seen. The posterior facets are well aligned. Normal alignment of the skull base with the cervical spine is seen. Moderate layering bilateral pleural effusions. IMPRESSION: No evidence of acute osseous abnormality of the cervical spine. Spondylotic changes at C5-6 and C6-7. Moderate layering bilateral pleural effusions.
[2024-09-23 13:15] LABS: SARS-CoV-2 Antigen CONTROL BLUE LINE VIS/BG OK; SARS-CoV-2 Antigen Rapid Res Negative (Negative)
--- NOTE | 2024-09-23 13:58 | RAD REPORT ---
EXAMINATION: CT PELVIS WITHOUT CONTRAST CLINICAL INDICATION: Female, 58 years old.[facility] L hip fx eval Bed Name: 15 TECHNIQUE: CT pelvis was performed, without IV contrast, as per department protocol. Axial, sagittal and coronal reconstructions were obtained. One or more of the following dose reduction techniques were used: Automated exposure control, adjustment of the mA and/or kV according to patient size, and/ or iterative reconstruction. Unless otherwise specified, incidental findings do not require dedicated imaging follow-up. COMPARISON: No prior exam. FINDINGS: The lack of intravenous contrast limits the sensitivity of this exam for evaluation of solid visceral organs, vascular structures, and retroperitoneum. MUSCULOSKELETAL: Comminuted left intertrochanteric fracture. Surrounding muscle edema , with small co mponents of hemorrhage, largest measuring 2.5 x 1 cm in axial dimensions. Small left hip joint effusion. Pelvic bones are otherwise intact. URINARY SYSTEM: No abnormalities of the included kidneys and ureters. Urinary bladder is unremarkable . GASTROINTESTINAL TRACT: Included small bowel is normal in caliber. No wall thickening or bowel inflam matory changes. LYMPH NODES: No lymphadenopathy. ABDOMINAL AORTA AND OTHER VESSELS: Normal caliber aorta and IVC. ADDITIONAL FINDINGS: Mild free pelvic ascites. Retroverted uterus, with fundal subserosal 4.3 x 3.1 c m fibroid IMPRESSION: Comminuted left intertrochanteric fracture. Surrounding muscular soft tissue swelling with small components of hematoma. Incidental note made of free pelvic ascites and fibroid uterus.
--- NOTE | 2024-09-23 14:10 | EDPHYS ---
Physician Documentation [facility] Name: Karlene Cr Age: 58 yrs Sex: Female : 1965 Arrival Date: 09/23/2024 Time: 12:05 Bed 15 Private MD: ED Physician Homar Gallardo HPI: 09/23 12:12 This 58 yrs old Female presents to ER via Unassigned with complaints of fall. ec2 12:12 Patient arrives today for evaluation after ground-level fall. Was ambulatory ec2 subsequently tripped and fell, complaining of left hip pain. Patient reports no LOC however is on Plavix. Reports head pain, no neck pain, reports left hip pain as well.. Historical: - Allergies: 12:16 PENICILLINS; rs5 - PMHx: 12:16 Bipolar; diabetes mellitus; neuropathy; rs5 - PSHx: 12:16 Cholecystectomy; rs5 - Immunization history:: Adult Immunizations up to date. - Infectious Disease History:: Denies. - Social history:: Smoking status: Patient denies any tobacco usage or history of. ROS: 12:12 Constitutional: as per hpi ec2 Exam: 12:12 Constitutional: GEN: No acute distress HEENT: -Head: no deformities -Eyes: EOMI CV: ec2 regular rate LUNGS: no respiratory distress ABD: non-tender SKIN: no wounds appreciated MSK: No C/T/L spine deformities RUE w/o bony deformity LUE TTP and swelling to the left hip, intact distal neurovascular status. RLE w/o bony deformity LLE w/o bony deformity NEURO: moves all extremities equally, GCS 15 (E4, V5, M6) Vital Signs: 12:14 BP 155 / 81; Pulse 74; Resp 17; Temp 98(O); Pulse Ox 99% on R/A; rs5 13:07 BP 144 / 74; Pulse 77; Resp 17; Pulse Ox 99% on R/A; rs5 14:01 BP 165 / 88; Pulse 74; Resp 17; Pulse Ox 95% on R/A; rs5 14:41 Weight 68.49 kg; Height 5 ft. 7 in. ; rs5 14:41 BP 173 / 88; Pulse 93; Resp 19; Temp 98.4(O); Pulse Ox 97% on R/A; nh2 15:45 BP 165 / 84; Pulse 88; Resp 17; Pulse Ox 95% on R/A; rs5 14:41 Body Mass Index 23.65 (68.49 kg, 170.18 cm) rs5 MDM: 12:09 Medical Screening Exam initiated ec2 12:12 Data reviewed: vital signs, nurses notes. ED course: Patient arrives today for left hip ec2 pain after GLF. Examination reveals left hip findings as above. Will obtain CT scan of the head and C-spine given the patient's nondistractible injuries, imaging of the pelvis to eval of her left hip fracture. Differential diagnoses considered include processes such as intracranial brain bleed, C-spine fracture, left hip fracture.. 14:06 ED course: CT of the head and C-spine without acute traumatic process. CT of the pelvis ec2 shows left intertrochanteric comminuted fracture. Will transfer to orthopedic capable facility.. 09/23 12:10 Order name: Basic Metabolic Panel; Complete Time: 12:58 ec2 09/23 12:10 Order name: CBC with Diff; Complete Time: 12:35 ec2 09/23 12:10 Order name: Type And Screen; Complete Time: 13:27 ec2 09/23 12:35 Order name: Influenza Screen (a \T\ B); Complete Time: 13:27 ec2 09/23 12:35 Order name: SARS RAPID; Complete Time: 13:27 ec2 09/23 12:10 Order name: CT Head C Spine; Complete Time: 13:27 ec2 09/23 12:10 Order name: XRAY Chest (1 view); Complete Time: 15:26 ec2 09/23 12:10 Order name: XRAY Pelvis; Complete Time: 15:26 ec2 09/23 12:10 Order name: Pelvis Wo Cont CT; Complete Time: 14:06 ec2 09/23 12:39 Order name: Thorax Wo Con; Complete Time: 15:26 EDMS 09/23 12:10 Order name: Labs collected and sent; Complete Time: 13:22 ec2 09/23 12:10 Order name: IV; Complete Time: 13:08 ec2 09/23 12:10 Order name: NPO; Complete Time: 13:08 ec2 Administered Medications: 12:15 Drug: fentaNYL (PF) IVP 25 mcg IVP once Route: IVP; Site: right antecubital; rs5 12:33 Follow up: Response: No adverse reaction; Pain is decreased rs5 12:15 Drug: NS 0.9% IV 500 ml IV at bolus once; to be given as a bolus over 30 minutes Route: rs5 IV; Rate: bolus; Site: right antecubital; 12:45 Follow up: Response: No adverse reaction; IV Status: Completed infusion; IV Intake: rs5 500ml 14:00 Drug: fentaNYL (PF) IVP 25 mcg IVP once Route: IVP; Site: right antecubital; rs5 14:22 Follow up: Response: No adverse reaction; Pain is decreased rs5 15:35 Drug: fentaNYL (PF) IVP 50 mcg IVP once Route: IVP; Site: right antecubital; rs5 15:45 Follow up: Response: No adverse reaction; Pain is decreased rs5 Disposition Summary: 09/23/24 14:09 Transfer Ordered Notes: Transfer Location: Other Acute Care Facility ec2 Reason: Higher level of care ec2 Condition: Stable ec2 Problem: new ec2 Symptoms: are unchanged ec2 Accepting Physician: transferring doc(09/23/24 15:47) rs5 Diagnosis - Comminuted Intertrochanteric Femur Fracture, Left ec2 Forms: - Medication Reconciliation Form ec2 - SBAR form ec2 Signatures: Dispatcher [employer] Stefano Lloyd RN RN rs5 Homar Gallardo MD MD ec2 Corrections: (The following items were deleted from the chart) 15:47 14:09 transferring doc ec2 rs5
--- NOTE | 2024-09-23 14:10 | ER ---
Nurse's Notes [facility] Name: Karlene Cr Age: 58 yrs Sex: Female : 1965 Arrival Date: 09/23/2024 Time: 12:05 Bed 15 Private MD: Diagnosis: Comminuted Intertrochanteric Femur Fracture, Left Presentation: 09/23 12:14 Chief complaint: EMS states: fell while ambulating with walker and landed on left hip. rs5 No LOC, is on blood thinners, event was unwitnessed. Coronavirus screen: At this time, the client does not indicate any symptoms associated with coronavirus-19. Ebola Screen: No symptoms or risks identified at this time. Initial Sepsis Screen: Does the patient meet any 2 criteria? No. Patient's initial sepsis screen is negative. Does the patient have a suspected source of infection? No. Patient's initial sepsis screen is negative. Risk Assessment: Do you want to hurt yourself or someone else? Patient reports no desire to harm self or others. Onset of symptoms was September 23, 2024. 12:14 Method Of Arrival: EMS: [facility] rs5 12:14 Acuity: [place] 3 rs5 Historical: - Allergies: 12:16 PENICILLINS; rs5 - PMHx: 12:16 Bipolar; diabetes mellitus; neuropathy; rs5 - PSHx: 12:16 Cholecystectomy; rs5 - Immunization history:: Adult Immunizations up to date. - Infectious Disease History:: Denies. - Social history:: Smoking status: Patient denies any tobacco usage or history of. Screenin:10 [facility] ED Fall Risk Assessment (Adult) History of falling in the last 3 months, rs5 including since admission Yes- single mechanical fall (1 pt) Confusion or Disorientation No (0 pts) Intoxicated or Sedated No (0 pts) Impaired Gait Yes (1 pt) Mobility Assist Device Used Yes (1 pt) Altered Elimination No (0 pt) Score/Fall Risk Level 3 or more points = High Risk Oriented to surroundings, Maintained a safe environment. Abuse screen: Denies threats or abuse. Nutritional screening: No deficits noted. Tuberculosis screening: No symptoms or risk factors identified. Assessment: 12:10 General: Appears in no apparent distress. uncomfortable, Behavior is calm, cooperative. rs5 12:10 Pain: Complains of pain in left hip Pain currently is 8 out of 10 on a pain scale. rs5 Quality of pain is described as aching, Is. Neuro: Level of Consciousness is awake, alert, obeys commands, Oriented to person, place, time, situation. Cardiovascular: Patient's skin is warm and dry. Respiratory: Airway is patent Respiratory effort is even, unlabored, Respiratory pattern is regular, symmetrical. 12:10 GI: Abdomen is round non-distended, Abd is soft and non tender X 4 quads. : No signs rs5 and/or symptoms were reported regarding the genitourinary system. EENT: No signs and/or symptoms were reported regarding the EENT system. Derm: Skin is intact, Skin is pink, warm \T\ dry. Musculoskeletal: Range of motion: intact in all extremities. 13:22 Reassessment: Patient and/or family updated on plan of care and expected duration. Pain rs5 level reassessed. Patient is alert, oriented x 3, equal unlabored respirations, skin warm/dry/pink. 14:36 Reassessment: Patient and/or family updated on plan of care and expected duration. Pain rs5 level reassessed. Patient is alert, oriented x 3, equal unlabored respirations, skin warm/dry/pink. 15:30 Reassessment: Patient and/or family updated on plan of care and expected duration. Pain rs5 level reassessed. Patient is alert, oriented x 3, equal unlabored respirations, skin warm/dry/pink. 15:40 Reassessment: report given to EMS at bedside . rs5 Vital Signs: 12:14 BP 155 / 81; Pulse 74; Resp 17; Temp 98(O); Pulse Ox 99% on R/A; rs5 13:07 BP 144 / 74; Pulse 77; Resp 17; Pulse Ox 99% on R/A; rs5 14:01 BP 165 / 88; Pulse 74; Resp 17; Pulse Ox 95% on R/A; rs5 14:41 Weight 68.49 kg; Height 5 ft. 7 in. ; rs5 14:41 BP 173 / 88; Pulse 93; Resp 19; Temp 98.4(O); Pulse Ox 97% on R/A; nh2 15:45 BP 165 / 84; Pulse 88; Resp 17; Pulse Ox 95% on R/A; rs5 14:41 Body Mass Index 23.65 (68.49 kg, 170.18 cm) rs5 ED Course: 12:09 Patient arrived in ED. ec2 12:09 Homar Gallardo MD is Attending Physician. ec2 12:10 Stefano Myers, HUBERT is Primary Nurse. rs5 12:10 No provider procedures requiring assistance completed. rs5 12:10 Patient has correct armband on for positive identification. Placed in gown. Bed in low rs5 position. Call light in reach. Side rails up X2. 12:15 Triage completed. rs5 12:15 Inserted saline lock: 20 gauge in right antecubital area, using aseptic technique. rs5 Blood collected. Flushed with 10 mL NS. 12:50 CT Head C Spine In Process Unspecified. EDMS 12:[address] In Process Unspecified. EDMS 12:50 Thorax Wo Con In Process Unspecified. EDMS 13:04 SARS RAPID Sent. nh2 13:04 Influenza Screen (a \T\ B) Sent. nh2 13:23 XRAY Chest (1 view) In Process Unspecified. EDMS 13:24 XRAY Pelvis In Process Unspecified. EDMS 14:26 initiated a transfer with [facility] from the [facility] transfer center. eb 14:50 administrative approval given by Desire Amos Rn Transitional TJovana Pandya / patient has been eb accepted to [facility] ED/ Dr. Amish Burns has accepted the patient in transfer without conference with Dr. Gallardo / Report to be called to [phone]. 15:40 Provided Education on: need for transfer. rs5 15:45 Patient transferred, IV remains in place. rs5 Administered Medications: 12:15 Drug: fentaNYL (PF) IVP 25 mcg IVP once Route: IVP; Site: right antecubital; rs5 12:33 Follow up: Response: No adverse reaction; Pain is decreased rs5 12:15 Drug: NS 0.9% IV 500 ml IV at bolus once; to be given as a bolus over 30 minutes Route: rs5 IV; Rate: bolus; Site: right antecubital; 12:45 Follow up: Response: No adverse reaction; IV Status: Completed infusion; IV Intake: rs5 500ml 14:00 Drug: fentaNYL (PF) IVP 25 mcg IVP once Route: IVP; Site: right antecubital; rs5 14:22 Follow up: Response: No adverse reaction; Pain is decreased rs5 15:35 Drug: fentaNYL (PF) IVP 50 mcg IVP once Route: IVP; Site: right antecubital; rs5 15:45 Follow up: Response: No adverse reaction; Pain is decreased rs5 Medication: 13:07 VIS not applicable for this client. rs5 Intake: 12:45 IV: 500ml; Total: 500ml. rs5 Outcome: 14:09 ER care complete, transfer ordered by . ec2 15:45 Transferred by ground EMS Transfer form completed. rs5 15:45 Condition: stable rs5 15:45 Instructed on the need for transfer, Demonstrated understanding of instructions, 15:47 Patient left the ED. rs5 Signatures: Dispatcher [employer] Bonnie Shah Ricky, RN RN rs5 Homar Gallardo MD MD ec2 [facility] Pulido, [facility] Corrections: (The following items were deleted from the chart) 13:06 12:10 General: Appears rs5 rs5 14:35 12:10 Pain: Complains of pain in right hip Pain currently is 8 out of 10 on a pain rs5 scale. Quality of pain is described as aching, Is rs5 14:35 12:14 Chief complaint: EMS states: Feel while ambulating with walker and landed on rs5 right hip. No LOC, is on blood thinners, event was unwitnessed rs5 14:36 12:14 BP 155 / 81; Pulse 74bpm; Resp 17bpm; Pulse Ox 99% RA; rs5 rs5 15:05 12:14 Chief complaint: EMS states: Feel while ambulating with walker and landed on left rs5 hip. No LOC, is on blood thinners, event was unwitnessed rs5
--- NOTE | 2024-09-23 14:55 | RAD REPORT ---
EXAMINATION: CT Thorax Wo Con CLINICAL INDICATION: Female, 58 years old. Fall. On blood thinners. LUNGS Y TECHNIQUE: Axial CT scan of the chest without intravenous contrast. Multiplanar reformats were genera isidra and reviewed. One or more of the following dose reduction techniques were used: Automated exposure control, adjustment of the mA and/or kV according patient size, and/or iterative reconstruct ion. Unless otherwise specified, incidental findings do not require dedicated imaging follow-up. COMPARISON: CTA chest 08/15/2024 FINDINGS: LOWER NECK: Visualized thyroid gland and soft tissues are normal. LUNGS: The lungs show scattered mild centrilobular emphysematous changes, stable. Segmental dependent airspace opacities, favoring atelectasis, although underlying pneumonia would be difficult to exclude. No worrisome nodules. PLEURA: Moderate layering pleural effusions. No pneumothorax. . MEDIASTINUM AND LYMPH NODES: Small pericardial effusion No mediastinal mass or fluid collection. Norm al size mediastinal, hilar, and axillary lymph nodes. OSSEOUS STRUCTURES AND CHEST WALL: Intact. UPPER ABDOMEN: Mild free perihepatic ascites. Mild nonspecific edema in the mesenteric root, incomple tely visualized. Status post cholecystectomy. IMPRESSION: Bilateral layering pleural effusions. Underlying dependent airspace opacification, favoring atelectas is, although superimposed pneumonia would be difficult to exclude. Mild pericardial effusion and mild free perihepatic ascites. Suspected mild central mesenteric edema, incompletely imaged. Please correlate clinically for fluid overload. Given the findings of pulmonary emphysematous changes mentioned above, please correlate clinically fo r a formal diagnosis of pulmonary emphysema. Pulmonary emphysema is considered an independent risk factor for lung cancer, consider evaluating the patient for a low dose CT lung cancer screening progr am.
--- NOTE | 2024-09-23 15:22 | RAD REPORT ---
EXAMINATION: XR PELVIS CLINICAL INDICATION: Female, 58 years old. [facility] MAIN fall, L hip injury Bed Name: 15 TECHNIQUE: AP Pelvis radiograph was obtained. COMPARISON: No prior exam. FINDINGS: Comminuted and displaced left femoral intertrochanteric fracture with some adduction of the distal femoral shaft. Hip joints are well aligned. Pelvic ring is otherwise intact. Vascular calcifications. No evidence of AVN. Soft tissue swelling around the left hip joint. IMPRESSION: Left femoral intertrochanteric fracture as above.
--- NOTE | 2024-09-23 15:23 | RAD REPORT ---
EXAMINATION: ONE VIEW CHEST XR CLINICAL INDICATION: Female, 58 years old.,fall TECHNIQUE: Frontal chest projection is submitted. Examination is limited by patient positioning and t echnique. COMPARISON: CT chest of the same day FINDINGS: No pneumothorax. Layering bilateral pleural effusions with central interstitial prominence, may sugge st additional component of pulmonary edema. More dense right perihilar/basal airspace opacification may relate to atelectasis although superimposed pneumonia would be difficult to exclude. The heart is normal in size. Mediastinal contours are unremarkable. No rib deformities. IMPRESSION: As above.
[2024-09-23 16:18] VITALS: BP 173/88; TEMP 98.4; O2SAT 97
== END 2024-09-23 15:47 ==
LOC: ER 12:05
DX: S72.142A Displaced intertrochanteric fracture of left femur, initial encounter for closed fracture (principal); W01.0XXA Fall on same level from slipping, tripping and stumbling without subsequent striking against object, initial encounter; Z79.01 Long term (current) use of anticoagulants; Z11.52 Encounter for screening for COVID-19
CPT/HCPCS: 85025; 80048; 36415; 86900; 86850; 86901; 87804 ×2; 70450; 71250; 72125; 72192; 71045; 72170; 96374; 99285; 87811; J3010 ×3; J7040